=== PATIENT | male | born 1960 | race Caucasian/White ===

== ENCOUNTER 2016-09-01 09:29 | Inpatient (IN) | payer OTHER ==
[~2016-09-01] VITALS: Ht 175.3 cm; Wt 80.0 kg
[2016-09-01] VITALS (48 sets, daily range): BP systolic 118–158; BP diastolic 56–93; PULSE 80–100; RESP 10–23
[~2016-09-01 09:29] MED LIST: CEFAZOLIN 2 GM/50 ML (PMX) 50 ML IVPB SCH; LABETALOL HCL 20MG INJ ONE; LACTATED RINGER'S 1,000 ML IV* ONE; hydrALAzine 20 MG INJ ONE
[2016-09-01] MEDS ORDERED: SOD CHLORIDE 0.9% 500 ML IV STA (10:02)
--- NOTE | 2016-09-01 10:12 | ERA ---
ER Documentation Chief Complaint Date/Time DATE: 09/01/16 TIME: 10:08 Chief Complaint SENT BY PCP FOR NECK SURGERY ;NECK PAIN HPI 55-year-old male history of chronic cervical radiculopathy was sent in by his orthopedic emergency medicine specialist for surgical intervention at noon. The patient is having progressive symptoms consistent with compressive myelopathy. The patient will be taken to the OR around noon. The patient's referring surgeon is called the emergency room requesting for preoperative laboratory testing, EKG and chest x-ray. The patient describes persistent symptoms over 2 weeks. He is now having numbness and tingling and weakness to bilateral upper and lower extremities. ROS All systems reviewed and are negative except as per history of present illness. Medications Home Meds No Active Prescriptions or Reported Meds Allergies Allergies: Coded Allergies: No Known Allergy (Unverified , 09/01/16) FmHx Family History: No diabetes Physical Exam Vitals Vital Signs Date Time Temp Pulse Resp B/P Pulse Ox O2 Delivery O2 Flow Rate FiO2 09/01/16 09:35 98.3 74 19 131/89 99 Physical Exam General: Well developed, well nourished, no acute distress Head: Normocephalic, atraumatic. Eyes: Pupils equally reactive, EOM intact ENT: Moist mucous membranes Neck: Supple, no lymphadenopathy Respiratory: Lungs clear bilaterally, no distress Cardiovascular: RRR, no murmurs, rubs, or gallops Abdominal: Soft, non-tender, non-distended, no peritoneal signs : Deferred MSK: No edema, no unilateral swelling, 4-5 strength noted to bilateral upper and lower extremities Neurologic: Alert and oriented, moving all extremities, normal speech, no cerebellar signs slightly unsteady gait Skin: No rash Psych: Normal mood Result Diagram: 09/01/16 1016 09/01/16 1016 Results 24 hrs Laboratory Tests Test 09/01/16 10:16 White Blood Count 7.910^3/ul Red Blood Count 4.8610^6/ul Hemoglobin 14.7g/dl Hematocrit 43.0% Mean Corpuscular Volume 88.5fl Mean Corpuscular Hemoglobin 30.2pg Mean Corpuscular Hemoglobin Concent 34.2g/dl Red Cell Distribution Width 12.0% Platelet Count 10406^3/UL Mean Platelet Volume 11.0fl Neutrophils % 60.6% Lymphocytes % 28.7% Monocytes % 7.4% Eosinophils % 2.0% Basophils % 0.3% Nucleated Red Blood Cells % 0.0/100WBC Neutrophils # 4.810^3/ul Lymphocytes # 2.310^3/ul Monocytes # 0.610^3/ul Eosinophils # 0.210^3/ul Basophils # 0.010^3/ul Nucleated Red Blood Cells # 0.010^3/ul Prothrombin Time 13.1Sec Prothrombin Time Ratio 1.0 INR International Normalized Ratio 0.99 Activated Partial Thromboplast Time 26.0Sec Sodium Level 142mmol/L Potassium Level 4.0mmol/L Chloride Level 103mmol/L Carbon Dioxide Level 27mmol/L Anion Gap 16 Blood Urea Nitrogen 16mg/dl Creatinine 0.83mg/dl Glucose Level 107mg/dl Calcium Level 9.3mg/dl Current Medications Medications (Trade) Dose Ordered Sig/Jose Cruz Route PRN Reason Start Time Stop Time Status Last Admin Dose Admin Sodium Chloride (NS) 500 ml @ 500 mls/hr Q1H STAT IV 09/01/16 10:02 09/01/16 11:01 DC 09/01/16 10:51 Procedures/MDM EKG, MONITORS, & DIAGNOSTIC IMAGING: EKG: I reviewed and interpreted a 12-lead EKG. Rhythm: Normal sinus rhythm Ectopy: None Intervals: No abnormalities ST segments: No elevations or depressions T waves: No contiguous inversions Chest x-ray: I reviewed and interpreted a 1 view of the chest Mediastinum: No enlargement Cardiac silhouette: No cardiomegaly Airspace: Clear lung gomes bilaterally without evidence of pneumothorax Bones: No evidence of fracture LAB INTERPRETATION: No leukocytosis MEDICAL DECISION MAKING: The patient is being admitted through the emergency room for compressive cervical myelopathy. The patient's referring surgeon is Dr. Vicente. The patient has no acute pain at this time. Preoperative laboratory testing and diagnostic imaging will be initiated. ER COURSE: Preoperative laboratory analysis and imaging was initiated. The patient is awaiting to be called to preop I kept the patient and/or family informed of laboratory and diagnostic imaging results throughout the emergency room course. DISPOSITION PLAN: Taken to preop for surgical decompression CONSULTATION: Accepting care team and consultations: I discussed the current laboratory data, diagnostic imaging and emergency care provided. Admitting team: Dr. Vicente Admitting team indication: Insurance directed Departure Diagnosis: Primary Impression: Cervical radiculopathy Additional Impression: Myelopathy Condition: Stable ANA KULKARNI MD Sep 01, 2016 10:12
--- NOTE | 2016-09-01 10:33 | RADRPT ---
PROCEDURE: XR Chest. CLINICAL INDICATION: Neck pain, preoperative TECHNIQUE: Single frontal view of the chest was obtained COMPARISON: None FINDINGS: The heart and mediastinum are within normal limits. The lungs are clear. There is no pleural effusion or pneumothorax. RPTAT: AA IMPRESSION: No acute disease. .Delroy Grissom MD, MD Date Time Electronically viewed and signed by .Delroy Grissom MD, on 09/01/2016 10:33 .S/
[2016-09-01 10:37] LABS: ADD SCAN DIFF NO
[2016-09-01 10:42] LABS: BASOPHILS % 0.3 % (0.0-2.0); EOSINOPHILS # 0.2 10^3/ul (0.0-0.5); HEMOGLOBIN 14.7 g/dl (14.0-18.0); LYMPHOCYTES # 2.3 10^3/ul (0.8-2.9); LYMPHOCYTES % 28.7 % (15.0-51.0); MEAN CORPUSCULAR HEMOGLOBIN 30.2 pg (29.0-33.0); MEAN CORPUSCULAR HGB CONC 34.2 g/dl (32.0-37.0); MEAN CORPUSCULAR VOLUME 88.5 fl (82.0-101.0); MONOCYTE # 0.6 10^3/ul (0.3-0.9); MONOCYTES % 7.4 % (0.0-11.0); NEUTROPHIL # 4.8 10^3/ul (1.6-7.5); NEUTROPHILS % 60.6 % (39.0-77.0); PLATELET COUNT 212 10^3/UL (140-415); RED BLOOD COUNT 4.86 10^6/ul (4.70-6.10); WHITE BLOOD COUNT 7.9 10^3/ul (4.8-10.8)
[2016-09-01 10:50] LABS: INR 0.99; PROTIME 13.1 Sec (12.2-14.2)
[2016-09-01 10:52] LABS: CREATININE 0.83 mg/dl (0.61-1.24)
[2016-09-01 10:53] LABS: CALCIUM 9.3 mg/dl (8.4-10.2)
--- NOTE | 2016-09-01 11:54 | HPN ---
Date/Time of Note Date/Time of Note DATE: 09/01/16 TIME: 11:54 Interval H&P Admission Note Pt. seen H&P reviewed: No system changes CARTER TEJADA PA-C Sep 01, 2016 11:54
[2016-09-01] MEDS ORDERED: ONDANSETRON 4 MG INJ IV PRN ×2 (12:00→18:00)
[2016-09-01] MEDS ORDERED: CYCLOBENZAPRINE 10 MG TAB PO PRN (12:00)
[2016-09-01] MEDS ORDERED: ACETAMINOPHEN 325 MG TAB PO PRN (12:00)
[2016-09-01] MEDS ORDERED: HYDROmorphONE 1 MG/ML SYG IV PRN (12:00)
[2016-09-01] MEDS ORDERED: CEPASTAT LOZENGE MT PRN (12:00)
[2016-09-01] MEDS ORDERED: AL HYDROX/MG HYDROX/SIMETH 30 ML CUP PO PRN (12:00)
[2016-09-01] MEDS ORDERED: ZOLPIDEM 5 MG TAB PO PRN (12:00)
[2016-09-01] MEDS ORDERED: DIPHENHYDRAMINE 50 MG INJ IV PRN ×2 (12:00→18:00)
[2016-09-01] MEDS ORDERED: BISACODYL 10 MG SUPP PR PRN (12:00)
[2016-09-01] MEDS ORDERED: NALOXONE (0.4 MG/ML) INJ IV PRN (12:00)
[2016-09-01] MEDS ORDERED: GELATIN SIZE 100 SPONGE ONE ×2 (12:48→15:53)
[2016-09-01] MEDS ORDERED: BUPIVACAINE 0.25%/EPI (SDV) 30 ML INJ ONE (12:48)
[2016-09-01] MEDS ORDERED: THROMBIN 5000 UNIT VIAL ONE ×3 (12:48→15:53)
[2016-09-01] MEDS ORDERED: POLYMYXIN/BACITRACIN 1L IRRIG ONE (12:48)
[2016-09-01] MEDS ORDERED: SURGIFOAM POWDER 1 GM KIT ONE (12:48)
[2016-09-01] MEDS ORDERED: LIDOCAINE 2% (SDV) 5 ML INJ ONE (13:30)
[2016-09-01] MEDS ORDERED: NEOSTIGMINE 3 MG/3 ML SYRINGE ONE (13:30)
[2016-09-01] MEDS ORDERED: GLYCOPYRROLATE 1 MG INJ ONE (13:30)
[2016-09-01] MEDS ORDERED: ROCURONIUM 50 MG INJ ONE (13:30)
[2016-09-01] MEDS ORDERED: PROPOFOL 20 ML ONE (13:30)
[2016-09-01] MEDS ORDERED: ONDANSETRON 4 MG INJ ONE (13:30)
[2016-09-01] MEDS ORDERED: FENTAnyl 50 MCG/ML VIAL ONE ×2 (13:30→17:44)
[2016-09-01] MEDS ORDERED: DEXAMETHASONE 4 MG/ML 1 ML INJ ONE ×2 (13:30→15:56)
[2016-09-01] MEDS ORDERED: MIDAZOLAM 1 MG/ML 2 ML INJ ONE ×2 (13:30→17:34)
[2016-09-01] MEDS ORDERED: FUROSEMIDE 20 MG INJ ONE (15:01)
[2016-09-01] MEDS ORDERED: HYDROmorphONE (0.2 MG/ML) 10ML SYG IV ONE (17:21)
[2016-09-01] MEDS: HYDROmorphONE 0.2 MG/ML PCA IV SCH (17:30)
[2016-09-01] MEDS ORDERED: MIDAZOLAM 1 MG/ML 2 ML INJ IV PRN (18:00)
[2016-09-01] MEDS ORDERED: MEPERIDINE 25 MG INJ IV PRN (18:00)
[2016-09-01] MEDS ORDERED: FENTAnyl 50 MCG/ML VIAL IV PRN ×2 (18:00)
[2016-09-01] MEDS ORDERED: ALBUTEROL 0.083% (NEB) 2.5 MG/3 ML AMP HHN ONE (18:00)
[2016-09-01] MEDS ORDERED: HYDROmorphONE (0.2 MG/ML) 10ML SYG IV PRN ×3 (18:00)
[2016-09-01] MEDS: CEFAZOLIN 1 GM/50 ML (PMX) 50 ML IVPB SCH ×2 (18:07→21:34)
[2016-09-01] MEDS: DEXAMETHASONE 4 MG/ML 1 ML INJ IV SCH (18:07)
--- NOTE | 2016-09-01 18:12 | RADRPT ---
PROCEDURE: Intraoperative radiograph of the occipitocervical junction. CLINICAL INDICATION: Surgical planning. TECHNIQUE: A cross-table lateral view of the cervical spine is performed. COMPARISON: No. FINDINGS: The cervical vertebra are anatomically aligned. There is a hemostat projecting at the base of the o ccipital bone. Monitoring electrodes are noted across the shoulders. Endotracheal tube and NG tube are noted in place. Fluoro time: 2.6 seconds mGy: 0.013 IMPRESSION: Intraoperative radiograph as described of the cervical spine. Physician Eugenio Date Time Electronically viewed and signed by Physician Eugenio on 09/01/2016 18:11 /
--- NOTE | 2016-09-01 20:32 | CONS ---
DATE OF ADMISSION: 09/01/2016 DATE OF CONSULTATION: Thank you, Dr. Vicente, for asking me to participate in medical management of this patient. REASON FOR CONSULTATION: High blood pressure. HISTORY OF PRESENT ILLNESS: This 55-year-old man is now postop a cervical spine surgery by Dr. Tye otero. The patient was admitted today through the emergency room because of cervical radiculopathy. The patient has been having increasing symptoms consistent with compressive myelopathy. The patie nt was taken to the operating room today by Dr. Vicente. The patient has had a cervical spine com pression. His symptoms were increasing. He was having neck pain, shoulder pain with numbness in th e elbows all the way to the fingertips. He has also had gait instability. The patient underwent linda rgery today, which included C3-C7 posterior cervical spine decompression. This was a 3-level decomp ression for spinal stenosis and cervical myelopathy. The patient is now in the recovery room. He i s awake, but is having pain and is being medicated. PAST MEDICAL HISTORY: The patient denies any history of prior medical disease. He denies prior hyp ertension, heart disease, diabetes mellitus, bleeding disorder. ALLERGIES: THE PATIENT DENIES ANY DRUG ALLERGIES. PAST SURGICAL HISTORY: He did undergo a right biceps surgery 10 years ago. MEDICATIONS: He does not take any chronic medication. He is not on any herbal supplements. FAMILY HISTORY: Unremarkable. SOCIAL HISTORY: He has never smoked. He drinks alcohol socially. PHYSICAL EXAMINATION: GENERAL: At this time reveals a well-developed man who is in some painful distress. He denies any chest pain or shortness of breath. He is having pain in his cervical spine area. VITAL SIGNS: Blood pressure 149/86, pulse of 83, O2 saturation 98% on room air. HEENT: Head normocephalic. EYES: Extraocular muscles intact. NOSE AND MOUTH: Normal. NECK: Supple. No neck vein distention. LUNGS: Clear to auscultation. HEART: Regular rhythm. No murmurs, gallops, or rubs. ABDOMEN: Soft, nontender. EXTREMITIES: No peripheral edema. IMPRESSION: This patient is now postoperative cervical spine surgery, multilevel. He is awake. He denies any chest pain or shortness of breath. His blood pressure is elevated. I suspect this is d ue to pain that he is having postoperatively. The patient is being medicated with pain medication a nd I think this will control his blood pressure. PLAN: 1. The patient will be transferred to the ICU for careful neurologic monitoring. 2. Postop multilevel cervical spine surgery protocol. 3. Labs in the morning. 4. I will follow the patient along with you. Dictated By: ANA REDDY MD ND/NTS Conf#: [id number] DID#: [id number] CC: PERLA VICENTE MD;*EndCC*
--- NOTE | 2016-09-01 21:07 | OPR ---
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 PROCEDURES: 1. Central decompressive laminectomy at C3-4, C4-5, C5-6, C6-7 with partial medial facetectomy. 2. Noninstrumented fusion at C3-4, C4-5, C5-6 and C6-7. 3. Use of autograft. 4. Use of C-arm fluoroscopy with interpretation without radiologist present. 5. Intraoperative neuromonitoring (3 hours). PRIMARY SURGEON: Ayden Rachel MD. CO-SURGEONS: Gerry Priest MD. SECOND BUCKLE ATTACHER: SERAFIN Pino. IMPLANTS: None. NEED FOR CO-SURGEON: A co-surgeon was required in order to perform one side of decompression while I performed the other to facilitate the speed of the surgery given the significant cervical myelopat hy. FINDINGS: Neuromonitoring at the start of the case revealed ulnar amplitude down 50%. This was the same at the end of the case. Posterior tibial amplitudes were down at the beginning of the case. The same at the end of the case. C5 and C7 amplitudes were down low at the start of the case. Stay ed low at the end of the case. C6 amplitudes were down 80% at the start of the case; stayed low at the end of the case. The patient had significant spinal cord stenosis with hyperemia at the end of the case and swelling. ESTIMATED BLOOD LOSS: 250 mL. DRAINS: One. SPECIMENS: None. COMPLICATIONS OF PROCEDURES: None. ANESTHESIOLOGIST: Dr. Stanley. TYPE OF ANESTHESIA: General. INDICATIONS FOR PROCEDURE: This is a 55-year-old gentleman who presented to the office with cervica l myelopathy, which apparently was progressive. He had an MRI which showed significant anterior and posterior spinal cord compression. There is no kyphosis at this level, and the patient was neutral , and, therefore, it was felt that it would be safer to proceed with the posterior decompressive jamison inectomy and, if indicated, anterior procedure will be done as a stage II. Preoperatively, we discu ssed the risks, benefits, and alternatives. He understood and wished to proceed. DESCRIPTION OF PROCEDURE IN DETAIL: The patient was identified in the preoperative holding area, [facility], taken to the operating room, where he was successfully placed under general an esthesia. Neuromonitoring leads were placed, sequential compressive devices were applied. Gutierres ca theter was introduced. Arterial line was placed. The patient was placed in the operating table in prone position over bolsters. All bony prominences were padded. Arms were tucked at the side. Janene romonitoring was utilized during the procedure for 3 hours to include SSEP, MEP, and EMG. This was performed by [employer]. Start time was 2:00 p.m., closure time was 5:00 p.m. The patient's hair was shaved and neck was prepped, draped in usual sterile fashion. Marcaine and epinephrine was utilized over the skin. The skin was then incised down to the dorsal fascia staying in midline. I then subperiosteally dissected the C2, C3, C4, C5, C6, and C7 lamina bilaterally. Dr. Priest did 1 side while I did the other side. Once this was done, a high speed bur was used to remove the spin ous processes and thin down the lamina while using a Lukens trap to collect the bone. Once this was done, a central decompressive laminectomy was performed at the C3-4, C4-5, C5-6 and C6-7 levels. A lateral recess was altered decompressed. At this point, we felt that adequate decompression was pe rformed. The steroids were given to the patient. I then took final lateral image to confirm the co rrect levels were operated on. The wound was irrigated. Hemostasis was achieved with Gelfoam, thro mbin, and Surgifoam. The lateral masses were then burred down, and I took local autograft and place d this over the lateral masses bilaterally for posterolateral noninstrumented fusion at C3-4, C4-5, C5-6 and C6-7. Deep subfascial drain was placed and the deep fascia was closed with #1 Vicryl stitc h. I then closed subcutaneous tissue with 2-0 Vicryl stitch. A 4-0 Monocryl closure was then perfo rmed. A drain stitch was placed. Dermabond and sterile dressings were then applied. The patient w as then awakened from anesthesia and taken to recovery room in stable condition. Lap, sponge, and i nstrument counts were correct x2. There were no apparent complications during the procedure. The patient will be admitted to the ICU for close neurovascular checks. On postoperative day #1 MRI will be obtained. If indicated, anterior decompression will be performed next. Lap, sponge, counts correct x2. Dictated By: AYDEN RACHEL MD BB/NTS Conf#: [id number] DID#: [id number] CC: GERRY PRIEST MD;*EndCC*
[2016-09-01] MEDS: D5W-0.45 NACL + KCL 20 MEQ 1,000 ML IV SCH (21:32)
[2016-09-01] MEDS: DOCUSATE SODIUM 100 MG CAP PO SCH (21:34)
[2016-09-02] VITALS (47 sets, daily range): BP systolic 115–149; BP diastolic 54–92; PULSE 82–102; RESP 10–28; Ht 175.3 cm; Wt 80.0 kg
[2016-09-02] MEDS: DEXAMETHASONE 4 MG/ML 1 ML INJ IV SCH ×5 (00:51→23:33)
[2016-09-02] MEDS: CEFAZOLIN 1 GM/50 ML (PMX) 50 ML IVPB SCH (05:46)
[2016-09-02 06:25] LABS: ADD SCAN DIFF NO
[2016-09-02 06:32] LABS: BASOPHILS % 0.1 % (0.0-2.0); HEMATOCRIT 39.7 % (42.0-52.0); HEMOGLOBIN 13.7 g/dl (14.0-18.0); LYMPHOCYTES # 1.2 10^3/ul (0.8-2.9); LYMPHOCYTES % 6.3 % (15.0-51.0); MEAN CORPUSCULAR HEMOGLOBIN 30.4 pg (29.0-33.0); MEAN CORPUSCULAR HGB CONC 34.5 g/dl (32.0-37.0); MEAN PLATELET VOLUME 11.2 fl (7.4-10.4); MONOCYTE # 0.5 10^3/ul (0.3-0.9); MONOCYTES % 2.7 % (0.0-11.0); NEUTROPHILS % 90.4 % (39.0-77.0); PLATELET COUNT 241 10^3/UL (140-415); RED BLOOD COUNT 4.51 10^6/ul (4.70-6.10); RED CELL DISTRIBUTION WIDTH 11.9 % (11.5-14.5); WHITE BLOOD COUNT 18.8 10^3/ul (4.8-10.8)
--- NOTE | 2016-09-02 07:00 | PN ---
Date/Time of Note Date/Time of Note DATE: 09/02/16 TIME: 06:58 Assessment/Plan Lines/Catheters IV Catheter Type (from Nrs): A Line Gutierres in Place (from Nrs): Yes Assessment/Plan Assessment/Plan s/p cervical decompression the patient's myelopathic symptoms appear improved. Will obtain MRI this am. Subjective 24 Hr Interval Summary feel more sensation in ext Exam/Review of Systems Vital Signs Vitals Vital Signs Date Time Temp Pulse Resp B/P Pulse Ox O2 Delivery O2 Flow Rate FiO2 09/02/16 05:30 88 11 124/54 99 Nasal Cannula 2.0 09/02/16 02:00 99.0 Intake and Output 09/01/16 09/01/16 09/02/16 15:00 23:00 07:00 Intake Total 2500 ml 350 ml Output Total 2530 ml 950 ml Balance -30 ml -600 ml Exam Free Text/Dictation strength grossly intact - improved from pre-op. no focal worsening Results Result Diagram: 09/02/16 0600 09/01/16 1016 PERLA RACHEL MD Sep 02, 2016 07:00
--- NOTE | 2016-09-02 07:00 | HPN ---
Date/Time of Note Date/Time of Note DATE: 09/02/16 TIME: 07:00 Interval H&P Admission Note Pt. seen H&P reviewed: No system changes PERLA RACHEL MD Sep 02, 2016 07:00
[2016-09-02 07:01] LABS: MAGNESIUM 1.4 mg/dl (1.7-2.5)
[2016-09-02 07:08] LABS: CALCIUM 8.9 mg/dl (8.4-10.2); CREATININE 0.68 mg/dl (0.61-1.24); POTASSIUM 3.8 mmol/L (3.5-5.1)
[2016-09-02] MEDS: D5W-0.45 NACL + KCL 20 MEQ 1,000 ML IV SCH ×3 (07:28→18:30)
[2016-09-02] MEDS: HYDROmorphONE 0.2 MG/ML PCA IV SCH ×2 (07:30→18:43)
--- NOTE | 2016-09-02 08:12 | CONS ---
Date/Time of Note Date/Time of Note DATE: 09/02/16 TIME: 08:11 Assessment/Plan Assessment/Plan Additional Assessment/Plan 1. Stablel post op cx spine surgery, 2nd procedure is planned ? 2. Low Mag, will replete Consultation Date/Type/Reason Admit Date/Time Sep 01, 2016 at 17:14 Initial Consult Date Detailed Summary Respiratory: No cough, No shortness of breath Cardiovascular: No chest pain Gastrointestinal: pain (mild lower abd discomfort), No nausea, No vomiting Neurologic: other (mild neck pain) Exam/Review of Systems Vital Signs Vitals Vital Signs Date Time Temp Pulse Resp B/P Pulse Ox O2 Delivery O2 Flow Rate FiO2 09/02/16 07:30 98.4 92 17 134/62 98 Nasal Cannula 2.0 Intake and Output 09/01/16 09/01/16 09/02/16 15:00 23:00 07:00 Intake Total 2500 ml 350 ml Output Total 2530 ml 950 ml Balance -30 ml -600 ml Exam Neck: No jvd Respiratory: clear to auscultation Cardiovascular: regular rate and rhythm Gastrointestinal: soft Extremities: No edema (and no calf tend) Results Result Diagram: 09/02/16 0600 09/02/16 0600 Results 24 hrs Laboratory Tests Test 09/01/16 10:16 09/02/16 06:00 White Blood Count 7.9 18.8 #H Red Blood Count 4.86 4.51 L Hemoglobin 14.7 13.7 L Hematocrit 43.0 39.7 L Mean Corpuscular Volume 88.5 88.0 Mean Corpuscular Hemoglobin 30.2 30.4 Mean Corpuscular Hemoglobin Concent 34.2 34.5 Red Cell Distribution Width 12.0 11.9 Platelet Count 212 241 Mean Platelet Volume 11.0 H 11.2 H Neutrophils % 60.6 90.4 H Lymphocytes % 28.7 6.3 L Monocytes % 7.4 2.7 Eosinophils % 2.0 0.0 Basophils % 0.3 0.1 Nucleated Red Blood Cells % 0.0 0.0 Neutrophils # 4.8 17.0 H Lymphocytes # 2.3 1.2 Monocytes # 0.6 0.5 Eosinophils # 0.2 0.0 Basophils # 0.0 0.0 Nucleated Red Blood Cells # 0.0 0.0 Prothrombin Time 13.1 Prothrombin Time Ratio 1.0 INR International Normalized Ratio 0.99 Activated Partial Thromboplast Time 26.0 Sodium Level 142 137 Potassium Level 4.0 3.8 Chloride Level 103 100 Carbon Dioxide Level 27 24 Anion Gap 16 17 H Blood Urea Nitrogen 16 12 Creatinine 0.83 0.68 Glucose Level 107 157 Calcium Level 9.3 8.9 Magnesium Level 1.4 L Medications Medications Current Medications Potassium Chloride/Dextrose/ Sod Cl (D5-1/2ns + KCl 20 Meq) 1,000 ml @ 100 mls/ hr Q10H IV Last administered on 09/02/16 07:28; Admin Dose 100 MLS/HR; Start 09/01/16 at 11:50 Oxycodone/ Acetaminophen (Endocet (10/ 325)) 1 tab Q4H PRN PO PAIN LEVEL 1-5; Start 09/03/16 at 10:00 Oxycodone/ Acetaminophen (Endocet (10/ 325)) 2 tab Q4H PRN PO PAIN LEVEL 6-10; Start 09/03/16 at 10:00 Hydromorphone HCl (Dilaudid) 0.2 mg Q1H PRN IV BREAKTHROUGH PAIN; Start at 12:00 Zolpidem Tartrate (Ambien) 10 mg HS PRN PO INSOMNIA; Start 09/01/16 at 12:00 Ondansetron HCl (Zofran Inj) 4 mg Q6H PRN IV NAUSEA AND/OR VOMITING; Start at 12:00 Bisacodyl (Dulcolax Supp) [address] CONSTIPATION; Start 09/01/16 at 12 :00 Docusate Sodium (Colace) 100 mg BID PO Last administered on 09/01/16t 21:34; Admin Dose 100 MG; Start 09/01/16 at 21:00 Al Hydrox/Mg Hydrox/Simethicone (Mag-Al Plus) 15 ml Q6H PRN PO CONSTIPATION/ DYSPEPSIA; Start 09/01/16 at 12:00 Acetaminophen (Tylenol Tab) 650 mg Q4H PRN PO MOSCOSO OR TEMP GREATER THAN 101.3F; Start 09/01/16 at 12:00 Cyclobenzaprine HCl (Flexeril) 10 mg TID PRN PO MUSCLE SPASMS; Start 09/01/16 at 12:00 Phenol (Cepastat Lozenge) 1 lozenge PRN PRN MT SORE THROAT; Start 09/01/16 at 12:00 Diphenhydramine HCl (Benadryl) 25 mg Q6H PRN IV ITCHING; Start 09/01/16 at 12: 00 Naloxone HCl (Narcan) 0.2 mg Q2M PRN IV RR 8 BREATHS/MIN OR LESS; Start at 12:00 Hydromorphone HCl (Dilaudid CLAIM PROCESSOR) CLAIM PROCESSOR to be started in PACU Q4PCA IV Last administered on 09/02/16 07:30; Admin Dose 30 MG; Start 09/01/16 at 12:00; Status Future Hold Oxycodone/ Acetaminophen (Endocet ()) 2 tab ONCE@0930 PO ; Start at 09:30; Stop 09/03/16 at 12:00 Dexamethasone (Decadron) 4 mg Q6 IV Last administered on 09/02/16 06:21; Admin Dose 4 MG; Start 09/01/16 at 18:00; Stop 09/02/16 at 17:59 Dexamethasone (Decadron) 2 mg Q6 IV ; Start 09/02/16 at 18:00; Stop 09/03/16 at 18:00 YUAN RAVI MD Sep 02, 2016 08:12
[2016-09-02] MEDS ORDERED: MAGNESIUM SULFATE 3 GM in SOD CHLORIDE 0.9% 100 ML IVPB ONE (09:30)
[2016-09-02] MEDS: DOCUSATE SODIUM 100 MG CAP PO SCH ×2 (09:44→20:56)
--- NOTE | 2016-09-02 12:14 | RADRPT ---
PROCEDURE: MRI Cervical spine without and with contrast CLINICAL INDICATION: Status post cervical decompression, weakness TECHNIQUE: An MRI of the cervical spine was performed utilizing the following sequences: Sagittal and axial T1 weighted, sagittal and axial T2 weighted, axial GRE, and sagittal T2 weighted with fat saturation. Additional post contrast sequences were acquired. 10 cc Magnevist was administered intr avenously without reported complication. COMPARISON: none FINDINGS: Status post posterior decompression C3-C7 with dorsal surgical drain in place. Straightening of the cervical lordosis. No acute vertebral compression fracture. No diffuse marrow replacing process. Hyperintense T2 si gnal within the cord is visualized from C3-4 to the level of C7 (se 3 image 7; se 4 image 7) . C2-3: The disk is preserved height. No significant disk protrusion, spinal canal or foraminal sten osis. C3-4: Surgical changes noted. 1 mm disk osteophyte complex and uncovertebral osteophytes are seen . There is mild bilateral foraminal narrowing. C4-5: Surgical changes noted. 4 mm central disk protrusion is identified with additional 5 x 18 mm ovoid T2 hyperintense structure within the ventral epidural space extending above and below the disk level (series 4 image 7). This epidural structure matches the signal of the disk on the T1 sequenc e. There is resulting effacement of the thecal sac with compression of the cord. Again, abnormal co rd signal is seen at this level. There is moderate-severe narrowing of the thecal sac at this level. Uncovertebral osteophytes and facet arthropathy cause mild bilateral foraminal narrowing. C5-6: Surgical changes noted. A left central 4 mm disk protrusion compresses the left ventral cord surface and results in moderate to severe narrowing of the thecal sac. No significant foraminal vi rowing. C6-7: Moderate to severe disk height loss. Uncovertebral osteophytes cause severe bilateral foramin al stenosis. A 5 mm posterior disk osteophyte complex effaces the ventral thecal sac and indents th e ventral cord surface. There appears to be mild to moderate narrowing of the thecal sac. C7-T1: The disk is preserved height. No significant disk protrusion, spinal canal or foraminal diamond nosis. IMPRESSION: Status post posterior decompression C3-C7 with dorsal surgical drain in place. Abnormal cord edema is visualized from C3-4 to C7. At C4-5, a 4 mm central disk protrusion is identified with a superimposed 5 x 18 mm ventral epidural space ovoid structure. The signal characteristics match disk signal suggesting extruded disk materi al. A developing epidural hematoma is felt less likely but difficult to entirely exclude in the imme diate postoperative setting. There is moderate-severe narrowing of the thecal sac at this level. C orrelation to prior imaging and attention on future follow up is recommended. At C5-6, a left central 4 mm disk protrusion compresses the left ventral cord surface and results in moderate to severe narrowing of the thecal sac. Moderate to severe discogenic disease C6-7 with severe bilateral foraminal stenosis and mild to mode rate narrowing of the thecal sac. A call report was made to the only phone number provided with information given to Anjum, Title Coordinator for the spine/ortho service at 09/02/2016 11:58:45 AM. Request to forward information t o the covering physician to correlate with neuro exam findings. RPTAT: AA .Willy Guzman MD, MD Date Time Electronically viewed and signed by .Willy Guzman MD, on 09/02/2016 12:13 .T/
[2016-09-02] MEDS ORDERED: DEXAMETHASONE 4 MG/ML 1 ML INJ IV SCH (18:00)
[2016-09-03 00:05] VITALS: BP 126/76; RESP 20
[2016-09-03] MEDS: HYDROmorphONE 0.2 MG/ML PCA IV SCH ×2 (02:57→18:56)
[2016-09-03] MEDS: D5W-0.45 NACL + KCL 20 MEQ 1,000 ML IV SCH ×3 (03:50→17:55)
--- NOTE | 2016-09-03 04:03 | OPR ---
DATE OF OPERATION: 09/01/2016 PREOPERATIVE DIAGNOSES: 1. Cervical myelopathy. 2. Cervical radiculopathy. 3. Cervical stenosis with quadriparesis. POSTOPERATIVE DIAGNOSES: 1. Cervical myelopathy. 2. Cervical radiculopathy. 3. Cervical stenosis with quadriparesis. PROCEDURES: 1. C3 bilateral laminectomy, medial facetectomy and foraminotomy, CPT 37441. 2. C4, C5, C6, C7 additional 4-level bilateral laminectomy, medial [place] [address] x4. 3. Posterolateral fusion, C3-C4, CPT 22003. 4. Posterolateral fusion, C4-C5, C5-C6, C6-C7, additional 3 levels, CPT 69668 x3. SURGEON AND CO-SURGEON: Dr. Gerry Mosqueda and Dr. Cinthia Vicente will be dictating the operative note also. INDICATION FOR THE OPERATION: Please refer to my consultation. This patient is 55, has severe cerv ical stenosis, cervical myelopathy. We will proceed with cervical decompressive laminectomy. There are disc herniations anteriorly in cervical spine that appear to be acute. This is the first part of the operation, in order to create more room in the spinal canal. The spinal cord is quite swolle n. The patient was seen in my office for second opinion for surgical evaluation and I recommended t he posterior cervical laminectomy to decompress the cervical spine first and then proceed with an an terior approach, with fusion and instrumentation. Patient agreed to proceed with operation an d signed the consent. DESCRIPTION OF PROCEDURE: The patient was placed in supine position. General endotracheal anesthes ia was obtained. The patient was turned prone on vertical boasters. Back of neck was clipped, prep ped and draped in normal sterile fashion. Incision was made by Dr. Vicente. Incision was carried out to the C3, C4, C5, C6 and C7 lamina. The laminectomy was started with high-speed drill. We dr illed off the lamina and was completely drilled off. Following that, the lamina from C7 all t he way to C3 was removed with #2, #3 and #4 Kerrison punch. There was severe stenosis. There was s evere bulging. The bone that was harvested in a Lukens trap with the drill was processed and was pl aced as an onlay graft onto the lateral masses from C3 to C7, after the lateral masses from C3 to C7 were brought together. The wound was closed in standard 3-layer fashion. The patient tolerated th e procedure well, was taken to postanesthesia recovery and then to the intensive care unit for obser vation. It should be noted that there was a drain that was placed in the epidural space and exited from the skin through a separate stab incision, was secured to the skin with 2-0 nylon suture. This was a medium size Hemovac drain. Dictated By: GERRY MOSQUEDA MD SY/NTS Conf#: [id number] DID#: [id number] CC: PERLA VICENTE MD;*[facility]*
[2016-09-03 05:08] LABS: ADD SCAN DIFF NO
[2016-09-03] MEDS: DEXAMETHASONE 4 MG/ML 1 ML INJ IV SCH ×4 (05:14→22:56)
[2016-09-03 05:19] LABS: BASOPHILS % 0.1 % (0.0-2.0); HEMATOCRIT 37.7 % (42.0-52.0); LYMPHOCYTES # 1.3 10^3/ul (0.8-2.9); MEAN CORPUSCULAR HGB CONC 34.5 g/dl (32.0-37.0); MEAN CORPUSCULAR VOLUME 89.8 fl (82.0-101.0); MONOCYTE # 1.2 10^3/ul (0.3-0.9); MONOCYTES % 5.3 % (0.0-11.0); NEUTROPHIL # 19.6 10^3/ul (1.6-7.5); PLATELET COUNT 260 10^3/UL (140-415); RED CELL DISTRIBUTION WIDTH 11.9 % (11.5-14.5); WHITE BLOOD COUNT 22.2 10^3/ul (4.8-10.8)
[2016-09-03 05:24] LABS: POTASSIUM 4.4 mmol/L (3.5-5.1)
[2016-09-03 05:27] LABS: CREATININE 0.68 mg/dl (0.61-1.24)
[2016-09-03 05:28] LABS: MAGNESIUM 2.2 mg/dl (1.7-2.5)
[2016-09-03 07:53] VITALS: BP 129/72; RESP 19
--- NOTE | 2016-09-03 08:47 | CONS ---
Date/Time of Note Date/Time of Note DATE: 09/03/16 TIME: 08:44 Assessment/Plan Assessment/Plan Additional Assessment/Plan 1. Stable post cx laminectomy with second procedure planned on thursday 2. WBC is inc, steroids started yesterday, will check u/a and cult Consultation Date/Type/Reason Admit Date/Time Sep 01, 2016 at 17:14 Detailed Summary Respiratory: cough, No shortness of breath Cardiovascular: No chest pain, No orthopenea Gastrointestinal: no complaints Genitourinary: other (valdez in place) Musculoskeletal: neck pain (moderate without shoulder pain, hands ache some but no cramping or burning) Exam/Review of Systems Vital Signs Vitals Vital Signs Date Time Temp Pulse Resp B/P Pulse Ox O2 Delivery O2 Flow Rate FiO2 09/03/16 07:53 98.0 71 19 129/72 98 09/02/16 16:00 Room Air 09/02/16 10:06 2.0 Intake and Output 09/02/16 09/02/16 09/03/16 15:00 23:00 07:00 Intake Total 300 ml 1380 ml 1550 ml Output Total 1110 ml 2420 ml 1560 ml Balance -810 ml -1040 ml -10 ml Exam Neck: No jvd Respiratory: clear to auscultation, crackles/rales Cardiovascular: regular rate and rhythm Gastrointestinal: soft Extremities: No edema (and no calf tend) Results Result Diagram: 09/03/16 0425 09/03/16 0425 Results 24 hrs Laboratory Tests Test 09/03/16 04:25 White Blood Count 22.2 H Red Blood Count 4.20 L Hemoglobin 13.0 L Hematocrit 37.7 L Mean Corpuscular Volume 89.8 Mean Corpuscular Hemoglobin 31.0 Mean Corpuscular Hemoglobin Concent 34.5 Red Cell Distribution Width 11.9 Platelet Count 260 Mean Platelet Volume 11.0 H Neutrophils % 88.0 H Lymphocytes % 6.0 L Monocytes % 5.3 Eosinophils % 0.0 Basophils % 0.1 Nucleated Red Blood Cells % 0.0 Neutrophils # 19.6 H Lymphocytes # 1.3 Monocytes # 1.2 H Eosinophils # 0.0 Basophils # 0.0 Nucleated Red Blood Cells # 0.0 Sodium Level 139 Potassium Level 4.4 Chloride Level 100 Carbon Dioxide Level 30 Anion Gap 13 Blood Urea Nitrogen 14 Creatinine 0.68 Glucose Level 161 Calcium Level 9.0 Phosphorus Level 3.3 Magnesium Level 2.2 Medications Medications Current Medications Potassium Chloride/Dextrose/ Sod Cl (D5-1/2ns + KCl 20 Meq) 1,000 ml @ 100 mls/ hr Q10H IV Last administered on 09/03/16 05:14; Admin Dose 100 MLS/HR; Start 09/01/16 at 11:50 Oxycodone/ Acetaminophen (Endocet (10 325)) 1 tab Q4H PRN PO PAIN LEVEL 1-5; Start 09/03/16 at 10:00 Oxycodone/ Acetaminophen (Endocet (10/ 325)) 2 tab Q4H PRN PO PAIN LEVEL 6-10; Start 09/03/16 at 10:00 Hydromorphone HCl (Dilaudid) 0.2 mg Q1H PRN IV BREAKTHROUGH PAIN; Start at 12:00 Zolpidem Tartrate (Ambien) 10 mg HS PRN PO INSOMNIA; Start 09/01/16 at 12:00 Ondansetron HCl (Zofran Inj) 4 mg Q6H PRN IV NAUSEA AND/OR VOMITING Last administered on 09/02/16 12:35; Admin Dose 4 MG; Start 09/01/16 at 12:00 Bisacodyl (Dulcolax Supp) 10 mg DAILY PRN [place] CONSTIPATION; Start 09/01/16 at 12 :00 Docusate Sodium (Colace) 100 mg BID PO Last administered on 09/02/16 20:56; Admin Dose 100 MG; Start 09/01/16 at 21:00 Al Hydrox/Mg Hydrox/Simethicone (Mag-Al Plus) 15 ml Q6H PRN PO CONSTIPATION/ DYSPEPSIA; Start 09/01/16 at 12:00 Acetaminophen (Tylenol Tab) 650 mg Q4H PRN PO MOSCOSO OR TEMP GREATER THAN 101.3F; Start 09/01/16 at 12:00 Cyclobenzaprine HCl (Flexeril) 10 mg TID PRN PO MUSCLE SPASMS; Start 09/01/16 at 12:00 Phenol (Cepastat Lozenge) 1 lozenge PRN PRN [place] SORE THROAT; Start 09/01/16 at 12:00 Diphenhydramine HCl (Benadryl) 25 mg Q6H PRN IV ITCHING; Start 09/01/16 at 12: 00 Naloxone HCl (Narcan) 0.2 mg Q2M PRN IV RR 8 BREATHS/MIN OR LESS; Start at 12:00 Hydromorphone HCl (Dilaudid CYLINDER INSPECTOR AND TESTER) CYLINDER INSPECTOR AND TESTER to be started in PACU Q4PCA IV Last administered on 09/03/16 02:57; Admin Dose 6 MG; Start 09/01/16 at 12:00; Status Future Hold Oxycodone/ Acetaminophen (Endocet (10/ 325)) 2 tab ONCE@0930 PO ; Start at 09:30; Stop 09/03/16 at 12:00 Dexamethasone (Decadron) 2 mg Q6 IV Last administered on 09/03/16 05:14; Admin Dose 2 MG; Start 09/03/16 at 06:00; Stop 09/05/16 at 18:00 YUAN RAVI MD Sep 03, 2016 08:47
[2016-09-03] MEDS ORDERED: OXYCODONE/ACETAMINOPHEN (10/325) TAB PO SCH (09:30)
[2016-09-03] MEDS: DOCUSATE SODIUM 100 MG CAP PO SCH ×2 (09:49→19:59)
[2016-09-03] MEDS ORDERED: OXYCODONE/ACETAMINOPHEN (10/325) TAB PO PRN ×2 (10:00)
[2016-09-03 11:43] LABS: ADD UMIC YES; URINE BILIRUBIN (Dip) NEGATIVE (NEGATIVE); URINE BLOOD (Dip) 1+ (NEGATIVE); URINE COLOR LT. YELLOW (YELLOW); URINE GLUCOSE (Dip) NEGATIVE (NEGATIVE); URINE KETONES (Dip) NEGATIVE (NEGATIVE); URINE LEUKOCYTE ESTERASE (Dip) NEGATIVE (NEGATIVE); URINE NITRITE (Dip) NEGATIVE (NEGATIVE); URINE TOTAL PROTEIN (Dip) NEGATIVE (NEGATIVE); URINE UROBILINOGEN (Dip) 1.0 E.U./dL (0.1-1.0)
--- NOTE | 2016-09-03 11:53 | PN ---
Date/Time of Note Date/Time of Note DATE: 09/03/16 TIME: 11:51 Assessment/Plan Lines/Catheters IV Catheter Type (from Nrs): Peripheral IV Valdez in Place (from Nrs): Yes Assessment/Plan Assessment/Plan s/p posterior cervical decompression C4-7 myelopathic patient plan ACDF C4-7 on thursday afternoon NPO after MN on consent patient for surgery maintain valdez and VETERINARY LABORATORY TECHNICIAN Subjective 24 Hr Interval Summary patient notes improvement in arm symptoms Exam/Review of Systems Vital Signs Vitals Vital Signs Date Time Temp Pulse Resp B/P Pulse Ox O2 Delivery O2 Flow Rate FiO2 09/03/16 07:53 98.0 71 19 129/72 98 09/02/16 16:00 Room Air 09/02/16 10:06 2.0 Intake and Output 09/02/16 09/02/16 09/03/16 15:00 23:00 07:00 Intake Total 300 ml 1380 ml 1550 ml Output Total 1110 ml 2420 ml 1560 ml Balance -810 ml -1040 ml -10 ml Exam Free Text/Dictation NVID AF, VSS posterior cervical dressing intact Results Result Diagram: 09/03/16 0425 09/03/16 0425 CARTER TEJADA PA-C Sep 03, 2016 11:53
[2016-09-03 12:00] VITALS: BP 126/76; PULSE 85; RESP 17
[2016-09-03 16:00] VITALS: BP 129/68; PULSE 88; RESP 17
[2016-09-03 20:11] VITALS: BP 131/78; RESP 20
[2016-09-04 05:09] LABS: ADD SCAN DIFF NO
[2016-09-04 05:18] LABS: BASOPHILS % 0.1 % (0.0-2.0); HEMATOCRIT 39.1 % (42.0-52.0); HEMOGLOBIN 13.3 g/dl (14.0-18.0); LYMPHOCYTES # 1.9 10^3/ul (0.8-2.9); LYMPHOCYTES % 9.6 % (15.0-51.0); MEAN CORPUSCULAR HEMOGLOBIN 30.4 pg (29.0-33.0); MEAN CORPUSCULAR VOLUME 89.5 fl (82.0-101.0); MONOCYTE # 1.2 10^3/ul (0.3-0.9); MONOCYTES % 6.1 % (0.0-11.0); NEUTROPHIL # 16.5 10^3/ul (1.6-7.5); NEUTROPHILS % 83.2 % (39.0-77.0); PLATELET COUNT 252 10^3/UL (140-415); RED BLOOD COUNT 4.37 10^6/ul (4.70-6.10); RED CELL DISTRIBUTION WIDTH 11.6 % (11.5-14.5); WHITE BLOOD COUNT 19.8 10^3/ul (4.8-10.8)
[2016-09-04] MEDS: DEXAMETHASONE 4 MG/ML 1 ML INJ IV SCH ×3 (05:29→18:47)
[2016-09-04 05:31] LABS: POTASSIUM 4.1 mmol/L (3.5-5.1)
[2016-09-04 05:34] LABS: CREATININE 0.72 mg/dl (0.61-1.24)
[2016-09-04 05:35] LABS: CALCIUM 9.1 mg/dl (8.4-10.2)
--- NOTE | 2016-09-04 07:44 | PN ---
Date/Time of Note Date/Time of Note DATE: 09/04/16 TIME: 07:43 Assessment/Plan Lines/Catheters IV Catheter Type (from Nrs): Peripheral IV Gutierres in Place (from Nrs): Yes Assessment/Plan Assessment/Plan s/p cervical decompression d/c drain. MRI tonight anticipate surgery tomorrow afternoon Subjective 24 Hr Interval Summary upper extremity feeling improved. Exam/Review of Systems Vital Signs Vitals Vital Signs Date Time Temp Pulse Resp B/P Pulse Ox O2 Delivery O2 Flow Rate FiO2 09/04/16 05:40 18 09/03/16 20:11 97.8 69 131/78 98 09/03/16 16:00 Room Air 09/02/16 10:06 2.0 Intake and Output 09/03/16 09/03/16 09/04/16 15:00 23:00 07:00 Intake Total 1470 ml 1360 ml Output Total 2500 ml 3520 ml Balance -1030 ml -2160 ml Exam Free Text/Dictation neuro exam unchanged. Results Result Diagram: 09/04/16 0425 09/04/16 0425 PERLA RACHEL MD Sep 04, 2016 07:44
[2016-09-04 08:07] VITALS: BP 129/86; RESP 18
[2016-09-04] MEDS: DOCUSATE SODIUM 100 MG CAP PO SCH ×2 (08:46→21:08)
[2016-09-04] MEDS: HYDROmorphONE 0.2 MG/ML PCA IV SCH (08:48)
[2016-09-04] MEDS: D5W-0.45 NACL + KCL 20 MEQ 1,000 ML IV SCH ×2 (09:50→21:09)
--- NOTE | 2016-09-04 11:11 | CONS ---
Date/Time of Note Date/Time of Note DATE: 09/04/16 TIME: 11:10 Assessment/Plan Assessment/Plan Additional Assessment/Plan 1. Stable post op cx laminectomy, 2nd procedure planned tomm 2. Labs rev Consultation Date/Type/Reason Admit Date/Time Sep 01, 2016 at 17:14 Detailed Summary Respiratory: No cough, No shortness of breath Cardiovascular: no complaints Gastrointestinal: no complaints Genitourinary: other (valdez in place) Musculoskeletal: neck pain (mild-mod) Exam/Review of Systems Vital Signs Vitals Vital Signs Date Time Temp Pulse Resp B/P Pulse Ox O2 Delivery O2 Flow Rate FiO2 09/04/16 08:07 98.3 64 18 129/86 98 09/03/16 16:00 Room Air 09/02/16 10:06 2.0 Intake and Output 09/03/16 09/03/16 09/04/16 15:00 23:00 07:00 Intake Total 1470 ml 1360 ml Output Total 2500 ml 3520 ml Balance -1030 ml -2160 ml Exam Neck: No jvd Respiratory: clear to auscultation Cardiovascular: regular rate and rhythm Gastrointestinal: soft Extremities: No edema (and no calf tend) Results Result Diagram: 09/04/16 0425 09/04/16 0425 Results 24 hrs Laboratory Tests Test 09/04/16 04:25 White Blood Count 19.8 H Red Blood Count 4.37 L Hemoglobin 13.3 L Hematocrit 39.1 L Mean Corpuscular Volume 89.5 Mean Corpuscular Hemoglobin 30.4 Mean Corpuscular Hemoglobin Concent 34.0 Red Cell Distribution Width 11.6 Platelet Count 252 Mean Platelet Volume 11.0 H Neutrophils % 83.2 H Lymphocytes % 9.6 L Monocytes % 6.1 Eosinophils % 0.0 Basophils % 0.1 Nucleated Red Blood Cells % 0.0 Neutrophils # 16.5 H Lymphocytes # 1.9 Monocytes # 1.2 H Eosinophils # 0.0 Basophils # 0.0 Nucleated Red Blood Cells # 0.0 Sodium Level 138 Potassium Level 4.1 Chloride Level 98 Carbon Dioxide Level 31 Anion Gap 13 Blood Urea Nitrogen 17 Creatinine 0.72 Glucose Level 155 Calcium Level 9.1 Magnesium Level 2.0 Medications Medications Current Medications Potassium Chloride/Dextrose/ Sod Cl (D5-1/2ns + KCl 20 Meq) 1,000 ml @ 100 mls/ hr Q10H IV Last administered on 09/03/16 17:55; Admin Dose 100 MLS/HR; Start 09/01/16 at 11:50 Oxycodone/ Acetaminophen (Endocet ( 325)) 1 tab Q4H PRN PO PAIN LEVEL 1-5; Start 09/03/16 at 10:00; Status Future Hold Oxycodone/ Acetaminophen (Endocet ( 325)) 2 tab Q4H PRN PO PAIN LEVEL 6-10; Start 09/03/16 at 10:00; Status Future Hold Hydromorphone HCl (Dilaudid) 0.2 mg Q1H PRN IV BREAKTHROUGH PAIN; Start at 12:00 Zolpidem Tartrate (Ambien) 10 mg HS PRN PO INSOMNIA; Start 09/01/16 at 12:00 Ondansetron HCl (Zofran Inj) 4 mg Q6H PRN IV NAUSEA AND/OR VOMITING Last administered on 09/02/16 12:35; Admin Dose 4 MG; Start 09/01/16 at 12:00 Bisacodyl (Dulcolax Supp) 10 mg DAILY PRN [place] CONSTIPATION; Start 09/01/16 at 12 :00 Docusate Sodium (Colace) 100 mg BID PO Last administered on 09/04/16 08:46; Admin Dose 100 MG; Start 09/01/16 at 21:00 Al Hydrox/Mg Hydrox/Simethicone (Mag-Al Plus) 15 ml Q6H PRN PO CONSTIPATION/ DYSPEPSIA; Start 09/01/16 at 12:00 Acetaminophen (Tylenol Tab) 650 mg Q4H PRN PO MOSCOSO OR TEMP GREATER THAN 101.3F; Start 09/01/16 at 12:00 Cyclobenzaprine HCl (Flexeril) 10 mg TID PRN PO MUSCLE SPASMS; Start 09/01/16 at 12:00 Phenol (Cepastat Lozenge) 1 lozenge PRN PRN [place] SORE THROAT; Start 09/01/16 at 12:00 Diphenhydramine HCl (Benadryl) 25 mg Q6H PRN IV ITCHING; Start 09/01/16 at 12: 00 Naloxone HCl (Narcan) 0.2 mg Q2M PRN IV RR 8 BREATHS/MIN OR LESS; Start at 12:00 Hydromorphone HCl (Dilaudid METALIZING SUPERVISOR) METALIZING SUPERVISOR to be started in PACU Q4PCA IV Last administered on 09/04/16 08:48; Admin Dose 6 MG; Start 09/01/16 at 12:00; Status Future hold Dexamethasone 2 mg 2 mg Q6 IV Last administered on 09/04/16 05:29; Admin Dose 2 MG; Start 09/03/16 at 06:00; Stop 09/05/16 at 18:00 Cefazolin Sodium/ Dextrose (Ancef 2 Gm/50 ml (Pmx)) 50 ml @ 100 mls/hr ONCE ONCE IVPB ; Start 09/05/16 at 06:00; Stop 09/05/16 at 06:29 YUAN RAVI MD Sep 04, 2016 11:11
[2016-09-04 20:16] VITALS: BP 148/87; RESP 20
[2016-09-05] VITALS (17 sets, daily range): BP systolic 125–156; BP diastolic 64–97; PULSE 68–102; RESP 9–25
[2016-09-05] MEDS: DEXAMETHASONE 4 MG/ML 1 ML INJ IV SCH ×4 (00:40→18:00)
[2016-09-05] MEDS: HYDROmorphONE 0.2 MG/ML PCA IV SCH ×3 (05:32→22:35)
[2016-09-05] MEDS: D5W-0.45 NACL + KCL 20 MEQ 1,000 ML IV SCH ×3 (05:50→22:11)
[2016-09-05] MEDS ORDERED: CEFAZOLIN 2 GM/50 ML (PMX) 50 ML IVPB ONE (06:00)
[2016-09-05] MEDS ORDERED: EPHEDrine SULFATE 50 MG/5 ML SYG ONE (07:00)
[2016-09-05] MEDS ORDERED: LIDOCAINE 2% (SDV) 5 ML INJ ONE (07:00)
[2016-09-05] MEDS: DOCUSATE SODIUM 100 MG CAP PO SCH ×3 (09:00→21:31)
--- NOTE | 2016-09-05 09:12 | PN ---
Date/Time of Note Date/Time of Note DATE: 09/05/16 TIME: 09:10 Assessment/Plan Lines/Catheters IV Catheter Type (from Nrsg): Peripheral IV Gutierres in Place (from Nrsg): Yes Assessment/Plan Assessment/Plan MRI C-spine 09/04 - there is still cord edema plan for surgery this afternoon - risks/benefits/alternatives d/w patient who consents for procedure NPO status 2g ancef ui application developer to OR Subjective 24 Hr Interval Summary patient c/o neck pain continues to note changes in arms Exam/Review of Systems Vital Signs Vitals Vital Signs Date Time Temp Pulse Resp B/P Pulse Ox O2 Delivery O2 Flow Rate FiO2 09/05/16 07:00 97.7 56 20 125/76 97 09/03/16 16:00 Room Air 09/02/16 10:06 2.0 Intake and Output 09/04/16 09/04/16 09/05/16 15:00 23:00 07:00 Intake Total 60 ml 1660 ml 550 ml Output Total 1400 ml 1600 ml Balance 60 ml 260 ml -1050 ml Exam Free Text/Dictation updated MRI C-spine 09/04 reviewed Results Result Diagram: 09/04/16 0425 09/04/16 0425 CARTER TEJADA PA-C Sep 05, 2016 09:12
--- NOTE | 2016-09-05 09:18 | RADRPT ---
PROCEDURE: MR Cervical Spine with and without contrast. CLINICAL INDICATION: Postoperative. TECHNIQUE: Multiplanar multisequence MRI of the cervical spine was performed before and following t he intravenous administration of 10 cc of Magnevist. COMPARISON: Postoperative noncontrast MRI of the cervical spine from September 02, 2016. FINDINGS: The patient is again noted to be status post bilateral C3-C7 laminectomies. Previous noted dorsal d rainage catheter has been removed. There is a new dorsal subcutaneous fluid collection noted at the C7-T1 level with a small amount of fluid continues with previous noted is catheter tract. This evgeny ures 3.6 cm transverse by 1.7 cm anteroposteriorly by a caudally. There is mild peripheral enhancem ent. There is also a paraspinal fluid collection continuous with this collection most pronounced at the C3-C4 level measuring 2.2 cm transverse by 1.7 cm anteroposteriorly by 2.0 cm cranial caudally. These fluid collections are confluent from the C2-C3 to the T1-T2 levels. Findings are most compat ible with a postoperative seroma. There is straightening of the normal cervical lordosis. The vertebral body heights are maintained. There is normal alignment. There is no destructive osseous lesion.There is no abnormal bone marrow edema. There is disk desiccation from C2-C3 to C6-C7. There is intramedullary T2 hyperintensity again noted at the C4-C5 level most compatible with myelom alacia. There is also intramedullary T2 hyperintensity from the C4 to the C7 levels again noted sugg esting spinal cord edema/myelomalacia. There is no abnormal spinal cord enhancement. C2-C3 : There is no disc herniation, spinal canal, or foraminal stenosis. This level is unchanged. C3-C4 : There is a 1 mm broad-based disk osteophyte complex with bilateral laminectomies without spi nal canal stenosis. There is mild bilateral facet arthropathy and bilateral uncovertebral hypertrop hy causing moderate bilateral foraminal stenosis. This level is unchanged. C4-C5 : There is mild disk space narrowing. There is a 6 mm central disk extrusion with T1 hyperint ensity extending 18 cranial caudally extending superiorly and inferiorly in the subligamentous regio n extending inferiorly to the C5-C6 endplate. This may represent a large disk extrusion however sup erimposed epidural hematoma is not excluded. Bilateral laminectomies are again noted with the theca l sac at this level measures 6 mm anteroposteriorly compatible with moderate to severe thecal sac ef facement. There is spinal cord impingement again noted. There is bilateral uncovertebral hypertroph y causing severe left with moderate right foraminal stenosis. This likely affects the exiting left C5 nerve root. This level is unchanged. C5-C6 : There is mild disk space narrowing. There is a 4 mm left paracentral disk extrusion which e xtends inferiorly in the subligamentous region which is difficult to evaluate. Bilateral laminectom ies are noted with the thecal sac within this region measuring 7 mm compatible with moderate thecal sac effacement with spinal cord impingement again noted . There is mild bilateral facet arthropathy and bilateral uncovertebral hypertrophy with mild right without left foraminal stenosis. This leve l is unchanged. C6-C7 : There is severe disk space narrowing. There is 1 mm of retrolisthesis with a 5 mm left para central disk/osteophyte protrusion with bilateral laminectomies with the thecal sac within this faviola on measuring 6 mm compatible moderate to severe thecal sac effacement with spinal cord impingement. There is moderate bilateral facet arthropathy and bilateral uncovertebral hypertrophy causing severe bilateral foraminal stenosis. This affects the exiting bilateral C7 nerve roots. This level is unc hanged. C7-T1 : There is no disk herniation or spinal canal stenosis. There are bilateral laminectomies wit h moderate bilateral facet arthropathy without spinal canal stenosis. There is no bilateral foramin al stenosis. This level is unchanged. IMPRESSION: 1. Interval removal of drainage catheter. There is a new posterior epidural/subcutaneous mildly pe ripherally enhancing fluid collection now noted extending from the C2-C3 to the T1-T2 levels most co mpatible with a postoperative seroma as detailed above. 2. Stable bilateral laminectomies from the C3 to the C7 levels. 3. C4-C5 to C6-C7 disk osteophyte complexes as detailed above causing moderate to severe C4-C5, mod erate C5-C6, and moderate to severe C6-C7 thecal sac effacement with stable multilevel spinal cord i mpingement. There is stable intramedullary T2 hyperintensity from C4-C5 to C6-C7 most compatible wit h spinal cord edema/myelomalacia. 4. C4-C5 central disk extrusion with ventral subligamentous signal measuring 18 mm cranial caudally in the subligamentous region which may represent large disk extrusion however superimposed epidural hematoma is not excluded. There is severe thecal sac effacement again noted at this level. There is stable focal C4-C5 myelomalacia. 5. Stable multilevel bilateral foraminal stenosis as detailed above. 6. No abnormal spinal cord enhancement. Further findings as detailed above. RPTAT: PP .Mickey Leavitt MD, MD Date Time Electronically viewed and signed by .Mickey Leavitt MD, on 09/05/2016 09:18 .F/
--- NOTE | 2016-09-05 10:11 | CONS ---
Date/Time of Note Date/Time of Note DATE: 09/05/16 TIME: 10:10 Assessment/Plan Assessment/Plan Additional Assessment/Plan 1. Stable post op cx laminectomy, 2nd procedure planned today 2. Labs rev Consultation Date/Type/Reason Admit Date/Time Sep 01, 2016 at 17:14 Detailed Summary Respiratory: No cough, No shortness of breath Cardiovascular: No chest pain Gastrointestinal: no complaints Genitourinary: other (valdez in place) Musculoskeletal: neck pain (mild) Exam/Review of Systems Vital Signs Vitals Vital Signs Date Time Temp Pulse Resp B/P Pulse Ox O2 Delivery O2 Flow Rate FiO2 09/05/16 07:00 97.7 56 20 125/76 97 09/03/16 16:00 Room Air 09/02/16 10:06 2.0 Intake and Output 09/04/16 09/04/16 09/05/16 15:00 23:00 07:00 Intake Total 60 ml 1660 ml 550 ml Output Total 1400 ml 1600 ml Balance 60 ml 260 ml -1050 ml Exam Neck: No jvd Respiratory: clear to auscultation Cardiovascular: regular rate and rhythm Extremities: No edema (and no calf tend) Results Result Diagram: 09/04/16 0425 09/04/16 0425 Medications Medications Current Medications Potassium Chloride/Dextrose/ Sod Cl (D5-1/2ns + KCl 20 Meq) 1,000 ml @ 100 mls/ hr Q10H IV Last administered on 09/04/16t 21:09; Admin Dose 100 MLS/HR; Start 09/01/16 at 11:50 Oxycodone/ Acetaminophen (Endocet (10/ 325)) 1 tab Q4H PRN PO PAIN LEVEL 1-5; Start 09/03/16 at 10:00; Status Future Hold Oxycodone/ Acetaminophen (Endocet (10/ 325)) 2 tab Q4H PRN PO PAIN LEVEL 6-10; Start 09/03/16 at 10:00; Status Future Hold Hydromorphone HCl (Dilaudid) 0.2 mg Q1H PRN IV BREAKTHROUGH PAIN; Start at 12:00 Zolpidem Tartrate (Ambien) 10 mg HS PRN PO INSOMNIA; Start 09/01/16 at 12:00 Ondansetron HCl (Zofran Inj) 4 mg Q6H PRN IV NAUSEA AND/OR VOMITING Last administered on 09/02/16 12:35; Admin Dose 4 MG; Start 09/01/16 at 12:00 Bisacodyl (Dulcolax Supp) 10 mg DAILY PRN [place] CONSTIPATION; Start 09/01/16 at 12 :00 Docusate Sodium (Colace) 100 mg BID PO Last administered on 09/04/16 21:08; Admin Dose 100 MG; Start 09/01/16 at 21:00 Al Hydrox/Mg Hydrox/Simethicone (Mag-Al Plus) 15 ml Q6H PRN PO CONSTIPATION/ DYSPEPSIA; Start 09/01/16 at 12:00 Acetaminophen (Tylenol Tab) 650 mg Q4H PRN PO MOSCOSO OR TEMP GREATER THAN 101.3F; Start 09/01/16 at 12:00 Cyclobenzaprine HCl (Flexeril) 10 mg TID PRN PO MUSCLE SPASMS; Start 09/01/16 at 12:00 Phenol (Cepastat Lozenge) 1 lozenge PRN PRN MT SORE THROAT Last administered on 09/04/16 21:08; Admin Dose 5 LOZENGE; Start 09/01/16 at 12:00 Diphenhydramine HCl (Benadryl) 25 mg Q6H PRN IV ITCHING; Start 09/01/16 at 12: 00 Naloxone HCl (Narcan) 0.2 mg Q2M PRN IV RR 8 BREATHS/MIN OR LESS; Start at 12:00 Hydromorphone HCl (Dilaudid ADMINISTRATIVE TECHNICIAN) ADMINISTRATIVE TECHNICIAN to be started in PACU Q4PCA IV Last administered on 09/05/16 05:32; Admin Dose 6 MG; Start 09/01/16 at 12:00; Status Future hold Dexamethasone (Decadron) 2 mg Q6 IV Last administered on 09/05/16 05:31; Admin Dose 2 MG; Start 09/03/16 at 06:00; Stop 09/05/16 at 18:00 YUAN RAVI MD Sep 05, 2016 10:11
[2016-09-05] MEDS ORDERED: GELATIN SIZE 100 SPONGE ONE (14:18)
[2016-09-05] MEDS ORDERED: POLYMYXIN/BACITRACIN 1L IRRIG ONE ×3 (14:18→18:35)
[2016-09-05] MEDS ORDERED: SURGIFOAM POWDER 1 GM KIT ONE (14:18)
[2016-09-05] MEDS ORDERED: BUPIVACAINE 0.25%/EPI (SDV) 30 ML INJ ONE (14:18)
[2016-09-05] MEDS ORDERED: PROPOFOL 100 ML ONE (14:37)
[2016-09-05] MEDS ORDERED: ROCURONIUM 50 MG INJ ONE ×2 (14:37→16:36)
[2016-09-05] MEDS ORDERED: HYDROmorphONE 2 MG/ML SYG ONE (14:37)
[2016-09-05] MEDS ORDERED: METOCLOPRAMIDE 10 MG INJ ONE (14:37)
[2016-09-05] MEDS ORDERED: SUCCINYLCHOLINE CHLORIDE 100 MG/5 ML SYG IV ONE ×2 (14:37→19:00)
[2016-09-05] MEDS ORDERED: FENTAnyl 50 MCG/ML VIAL ONE (14:37)
[2016-09-05] MEDS ORDERED: PROPOFOL 20 ML ONE (14:37)
[2016-09-05] MEDS ORDERED: ONDANSETRON 4 MG INJ ONE (14:37)
[2016-09-05] MEDS ORDERED: DEXAMETHASONE 4 MG/ML 1 ML INJ ONE (14:38)
[2016-09-05] MEDS ORDERED: MIDAZOLAM 1 MG/ML 2 ML INJ ONE (14:39)
[2016-09-05] MEDS ORDERED: CEFAZOLIN 1 GM INJ ONE (15:19)
[2016-09-05] MEDS ORDERED: GENTAMICIN 80 MG INJ ONE (15:20)
[2016-09-05] MEDS: THROMBIN 5000 UNIT VIAL ONE ×2 (15:51→15:52)
[2016-09-05] MEDS ORDERED: METOCLOPRAMIDE 10 MG INJ IV PRN (19:30)
[2016-09-05] MEDS ORDERED: HYDROmorphONE (0.2 MG/ML) 10ML SYG IV PRN ×3 (19:30)
[2016-09-05] MEDS ORDERED: DIPHENHYDRAMINE 50 MG INJ IV PRN ×2 (19:30→20:00)
[2016-09-05] MEDS ORDERED: ONDANSETRON 4 MG INJ IV PRN ×2 (19:30→20:00)
[2016-09-05] MEDS ORDERED: MEPERIDINE 25 MG INJ IV PRN (19:30)
[2016-09-05] MEDS ORDERED: AL HYDROX/MG HYDROX/SIMETH 30 ML CUP PO PRN (20:00)
[2016-09-05] MEDS ORDERED: ZOLPIDEM 5 MG TAB PO PRN (20:00)
[2016-09-05] MEDS ORDERED: CYCLOBENZAPRINE 10 MG TAB PO PRN (20:00)
[2016-09-05] MEDS ORDERED: BISACODYL 10 MG SUPP PR PRN (20:00)
[2016-09-05] MEDS ORDERED: CEPASTAT LOZENGE MT PRN (20:00)
[2016-09-05] MEDS ORDERED: NALOXONE (0.4 MG/ML) INJ IV PRN (20:00)
[2016-09-05] MEDS ORDERED: ACETAMINOPHEN 325 MG TAB PO PRN (20:00)
[2016-09-05] MEDS ORDERED: OXYCODONE/ACETAMINOPHEN (10/325) TAB PO PRN (20:00)
[2016-09-05] MEDS ORDERED: DEXAMETHASONE 4 MG/ML 1 ML INJ IV SCH (20:00)
[2016-09-05] MEDS: CEFAZOLIN 1 GM/50 ML (PMX) 50 ML IVPB SCH (21:16)
--- NOTE | 2016-09-05 21:26 | RADRPT ---
PROCEDURE: Intraoperative fluoroscopy. CLINICAL INDICATION: Intraoperative fluoroscopy during cervical fusion. TECHNIQUE: 8 spot intraoperative fluoroscopic images were provided. The images were reviewed on a high-resolution PACS workstation. COMPARISON: None available FINDINGS: Multiple spot intraoperative fluoroscopic views were provided during cervical fusion. The images de monstrate additional metallic probe at the level of C4-5 and C5-6. Subsequent images demonstrate pl acement of anterior vertebral body screws and anterior spinal fusion plates as well as vertebral dis c-spacers at C4-5, C5-6 and C6-7. The total fluoroscopy time was 2.6 seconds. IMPRESSION: 1. Multiple spot intraoperative fluoroscopic views during cervical fusion were provided. 2. Please see operative report of the same day for further information. RPTAT: HGAS .Adrián Guzman MD, Date Time Electronically viewed and signed by .Adrián Guzman MD, on 09/05/2016 21:26 .S/
[2016-09-06] VITALS (12 sets, daily range): BP systolic 120–155; BP diastolic 72–87; PULSE 60–72; RESP 8–21
[2016-09-06] MEDS ORDERED: HYDROmorphONE 0.2 MG/ML PCA ONE (03:14)
[2016-09-06] MEDS: HYDROmorphONE 0.2 MG/ML PCA IV SCH ×3 (03:22→23:42)
[2016-09-06] MEDS: CEFAZOLIN 1 GM/50 ML (PMX) 50 ML IVPB SCH ×2 (04:01→13:34)
[2016-09-06 04:54] LABS: ADD SCAN DIFF NO
[2016-09-06 05:02] LABS: ABNORMAL IP MESSAGE 1; BASOPHIL # 0.1 10^3/ul (0.0-0.1); BASOPHILS % 0.4 % (0.0-2.0); EOSINOPHILS % 0.1 % (0.0-7.0); HEMATOCRIT 36.9 % (42.0-52.0); LYMPHOCYTES # 2.9 10^3/ul (0.8-2.9); LYMPHOCYTES % 16.1 % (15.0-51.0); MEAN CORPUSCULAR HEMOGLOBIN 30.8 pg (29.0-33.0); MEAN CORPUSCULAR HGB CONC 35.2 g/dl (32.0-37.0); MEAN CORPUSCULAR VOLUME 87.4 fl (82.0-101.0); MEAN PLATELET VOLUME 10.5 fl (7.4-10.4); MONOCYTE # 1.6 10^3/ul (0.3-0.9); MONOCYTES % 8.6 % (0.0-11.0); NEUTROPHIL # 12.8 10^3/ul (1.6-7.5); PLATELET COUNT 248 10^3/UL (140-415); RED BLOOD COUNT 4.22 10^6/ul (4.70-6.10); RED CELL DISTRIBUTION WIDTH 11.6 % (11.5-14.5); WHITE BLOOD COUNT 18.1 10^3/ul (4.8-10.8)
[2016-09-06 05:19] LABS: CALCIUM 8.7 mg/dl (8.4-10.2); CREATININE 0.75 mg/dl (0.61-1.24); POTASSIUM 4.3 mmol/L (3.5-5.1)
[2016-09-06] MEDS: D5W-0.45 NACL + KCL 20 MEQ 1,000 ML IV SCH ×3 (08:26→20:31)
--- NOTE | 2016-09-06 11:00 | PN ---
Date/Time of Note Date/Time of Note DATE: 09/06/16 TIME: 10:58 Assessment/Plan Lines/Catheters IV Catheter Type (from Nrs): Peripheral IV Gutierres in Place (from Nrs): Yes Assessment/Plan Assessment/Plan s.p cervical fusion patient feels improved sore throat MRI tonight cont current regimen PT Subjective 24 Hr Interval Summary sore throat feel more sensation in extremities Exam/Review of Systems Vital Signs Vitals Vital Signs Date Time Temp Pulse Resp B/P Pulse Ox O2 Delivery O2 Flow Rate FiO2 09/06/16 10:04 62 11 129/81 95 Room Air 09/06/16 07:04 98.1 09/05/16 19:57 6.0 Intake and Output 09/05/16 09/05/16 09/06/16 15:00 23:00 07:00 Intake Total 1300 ml 2000 ml 1580 ml Output Total 1750 ml 1810 ml Balance 1300 ml 250 ml -230 ml Exam Free Text/Dictation myelopathic finidings improving Results Result Diagram: 09/06/16 0425 09/06/16 0425 PERLA RACHEL MD Sep 06, 2016 11:00
--- NOTE | 2016-09-06 11:51 | CONS ---
Date/Time of Note Date/Time of Note DATE: 09/06/16 TIME: 11:50 Assessment/Plan Assessment/Plan Additional Assessment/Plan Stable post op course. Cervical fusion yesterday MRI tonight PT today pain control diet dvt ppx Consultation Date/Type/Reason Admit Date/Time Sep 01, 2016 at 17:14 Initial Consult Date 24 HR Interval Summary Free Text/Dictation Has some pain, starting to eat. Anticipating PT today Exam/Review of Systems Vital Signs Vitals Vital Signs Date Time Temp Pulse Resp B/P Pulse Ox O2 Delivery O2 Flow Rate FiO2 09/06/16 10:04 62 11 129/81 95 Room Air 09/06/16 07:04 98.1 09/05/16 19:57 6.0 Intake and Output 09/05/16 09/05/16 09/06/16 15:00 23:00 07:00 Intake Total 1300 ml 2000 ml 1580 ml Output Total 1750 ml 1810 ml Balance 1300 ml 250 ml -230 ml Exam Constitutional: alert, oriented, well developed Respiratory: clear to auscultation, normal air movement Cardiovascular: nl pulses, regular rate and rhythm Results Result Diagram: 09/06/16 0425 09/06/16 0425 Results 24 hrs Laboratory Tests Test 09/06/16 04:25 White Blood Count 18.1 H Red Blood Count 4.22 L Hemoglobin 13.0 L Hematocrit 36.9 L Mean Corpuscular Volume 87.4 Mean Corpuscular Hemoglobin 30.8 Mean Corpuscular Hemoglobin Concent 35.2 Red Cell Distribution Width 11.6 Platelet Count 248 Mean Platelet Volume 10.5 H Neutrophils % 71.0 Lymphocytes % 16.1 Monocytes % 8.6 Eosinophils % 0.1 Basophils % 0.4 Nucleated Red Blood Cells % 0.0 Neutrophils # 12.8 H Lymphocytes # 2.9 Monocytes # 1.6 H Eosinophils # 0.0 Basophils # 0.1 Nucleated Red Blood Cells # 0.0 Sodium Level 134 L Potassium Level 4.3 Chloride Level 99 Carbon Dioxide Level 30 Anion Gap 9 Blood Urea Nitrogen 18 Creatinine 0.75 Glucose Level 127 Calcium Level 8.7 Magnesium Level 1.9 Medications Medications Current Medications Potassium Chloride/Dextrose/ Sod Cl (D5-1/2ns + KCl 20 Meq) 1,000 ml @ 100 mls/ hr Q10H IV Last administered on 09/06/16t 08:26; Admin Dose 100 MLS/HR; Start 09/05/16 at 19:55 Oxycodone/ Acetaminophen (Endocet (10/ 325)) 1 tab Q4H PRN PO PAIN LEVEL 1-5; Start 09/05/16 at 20:00 Oxycodone/ Acetaminophen (Endocet (10/ 325)) 2 tab Q4H PRN PO PAIN LEVEL 6-10; Start 09/05/16 at 20:00 Hydromorphone HCl 0.2 mg 0.2 mg Q1H PRN IV BREAKTHROUGH PAIN; Start 09/05/16 at 20:00 Cefazolin Sodium (Ancef 1 Gm/50 ml (Pmx)) 50 ml @ 100 mls/hr Q8H IVPB Last administered on 09/06/16t 04:01; Admin Dose 100 MLS/HR; Start 09/05/16 at 20:00 ; Stop 09/06/16 at 12:29 Ondansetron HCl (Zofran Inj) 4 mg Q6H PRN IV NAUSEA AND/OR VOMITING; Start at 20:00 Bisacodyl (Dulcolax Supp) 10 mg DAILY PRN [place] CONSTIPATION; Start 09/05/16 at 20 :00 Docusate Sodium (Colace) 100 mg BID PO Last administered on 09/05/16t 21:19; Admin Dose 100 MG; Start 09/05/16 at 21:00 Al Hydrox/Mg Hydrox/Simethicone (Mag-Al Plus) 15 ml Q6H PRN PO CONSTIPATION/ DYSPEPSIA; Start 09/05/16 at 20:00 Acetaminophen (Tylenol Tab) 650 mg Q4H PRN PO MOSCOSO OR TEMP GREATER THAN 101.3F; Start 09/05/16 at 20:00 Cyclobenzaprine HCl (Flexeril) 10 mg TID PRN PO MUSCLE SPASMS; Start 09/05/16 at 20:00 Phenol (Cepastat Lozenge) 1 lozenge PRN PRN MT SORE THROAT; Start 09/05/16 at 20:00 Diphenhydramine HCl (Benadryl) 25 mg Q6H PRN IV ITCHING; Start 09/05/16 at 20: 00 Naloxone HCl (Narcan) 0.2 mg Q2M PRN IV RR 8 BREATHS/MIN OR LESS; Start at 20:00 Hydromorphone HCl (Dilaudid DATA OFFICER) DATA OFFICER to be started in PACU Q4PCA IV Last administered on 09/06/16t 03:22; Admin Dose 6 MG; Start 09/05/16 at 20:00 Miscellaneous Information 1. Hold DATA OFFICER at 1,000... DATA OFFICER IV ; Start 09/05/16 at 20: 00 Dexamethasone (Decadron) 2 mg Q6 IV ; Start 09/07/16 at 20:00; Stop 09/08/16 at 20:00 APOLLO STAHL MD Sep 06, 2016 11:51
--- NOTE | 2016-09-06 16:06 | RADRPT ---
PROCEDURE: MR Cervical Spine with and without contrast. CLINICAL INDICATION: Neck pain radiating to right arm. Postoperative. TECHNIQUE: Multiplanar multisequence MRI of the cervical spine was performed before and following t he intravenous administration of 10 cc of Magnevist.. COMPARISON: Preoperative noncontrast MRI of the cervical spine from September 04, 2016. FINDINGS: The patient is status post interval anterior cervical discectomy and fusion from the C4 to the C7 le vels. This causes susceptibility artifact limiting evaluation. Bilateral laminectomies are again no anika from the C3 to the C7 levels. Within the postoperative site there is peripheral enhancing fluid collection extending from the C2-C3 to the C7-T1 levels extending to the posterior dura most compat ible to postoperative seroma. There is straightening of the normal cervical lordosis. The vertebral body heights are maintained. There is no destructive osseous lesion.There is no abnormal bone marrow edema. The discs are normal in height and signal. There is a focal T2 hyperintensity within the spinal cord at the at the C4 level suggesting myelomal acia. This also noted focally at the C6-C7 level with associated volume loss compatible with myelom alacia. There is decrease intramedullary T2 hyperintensity from the C4 to the C7 levels compatible w ith improving spinal cord edema. C2-C3 : There is no disc herniation, spinal canal, or foraminal stenosis. This level is unchanged. C3-C4 : There is a 1 mm broad-based disk osteophyte complex with bilateral laminectomies with new tr iram retrolisthesis with increased 2 mm central disk bulge now mildly indenting the spinal cord with increased thecal sac effacement with moderate thecal sac stenosis with the AP diameter measuring 7 m m previously measuring 9 mm. There is mild bilateral facet arthropathy and bilateral uncovertebral hypertrophy causing moderate bilateral foraminal stenosis. C4-C5 : There has been interval resection of previous noted subligamentous/epidural ventral soft tis amira with resolution of spinal cord impingement at this level. There is improved mild thecal sac effa cement which previously was moderate to severe. Bilateral laminectomies are again noted. There is bi lateral uncovertebral hypertrophy causing stable severe left with moderate right foraminal stenosis. This likely affects the exiting left C5 nerve root. C5-C6 : There is mild disk space narrowing. There is decrease in size of previous noted left paracen tral disk extrusion measuring 2 mm previously measuring 4 mm. There is improved mild thecal sac eff acement which previously was moderate. There is resolved spinal cord impingement. Bilateral isaac ctomies are again noted. There is mild bilateral facet arthropathy and bilateral uncovertebral hyper trophy with stable mild right without left foraminal stenosis. C6-C7 : There is severe disk space narrowing. There is 1 mm of retrolisthesis with decrease in previ ous noted left central disk osteophyte complex measuring 2 mm previously measuring 5 mm. Bilateral laminectomies are again noted with improved mild thecal sac effacement which previously was moderate to severe with resolution of spinal cord impingement. There is moderate bilateral facet arthropathy and bilateral uncovertebral hypertrophy causing stable severe bilateral foraminal stenosis. This af fects the exiting bilateral C7 nerve roots. This level is unchanged. C7-T1 : There is no disk herniation or spinal canal stenosis. There are bilateral laminectomies with moderate bilateral facet arthropathy without spinal canal stenosis. There is no bilateral foraminal stenosis. This level is unchanged. The paravertebral musculature are within normal limits. IMPRESSION: 1. Status post interval anterior cervical discectomy and fusion from the C4 to the C7 levels. Bila teral laminectomies are again noted from the C3 to the C7 levels. There is a postoperative seroma fr om the C3 to the C7 levels again noted. 2. Decreased spinal cord edema from the C4 to the C7 levels with residual focal myelomalacia at C4 as well as focal myelomalacia and volume loss at the C7 level. 3. Interval C4-C5 resection of previous noted subligamentous/epidural ventral soft tissue with reso lution of spinal cord impingement at this level. There is improved mild thecal sac effacement which with stable bilateral laminectomies. 4. Decreased C5-C6 left paracentral disk protrusion with improved mild thecal sac effacement with r esolution of spinal cord impingement with stable bilateral laminectomies. 5. Stable C6-C7 minimal retrolisthesis with decrease in previous noted left central disk osteophyte complex with stable bilateral laminectomies and improved mild thecal sac effacement with resolution of spinal cord impingement. 6. Stable bilateral foraminal stenosis affecting the exiting left C5 and bilateral C7 nerve roots a s detailed above. 7. No abnormal bone marrow edema. 8. No abnormal spinal cord enhancement. Further findings as detailed above. RPTAT: PP .Mickey Leavitt MD, MD Date Time Electronically viewed and signed by .Mickey Leavitt MD, MD on 09/06/2016 16:06 .F/
[2016-09-06] MEDS: DOCUSATE SODIUM 100 MG CAP PO SCH (20:31)
[2016-09-07] MEDS: D5W-0.45 NACL + KCL 20 MEQ 1,000 ML IV SCH ×2 (01:55→05:55)
[2016-09-07 05:35] LABS: ABNORMAL IP MESSAGE 1; ADD SCAN DIFF NO; BASOPHILS % 0.2 % (0.0-2.0); EOSINOPHILS # 0.2 10^3/ul (0.0-0.5); EOSINOPHILS % 1.2 % (0.0-7.0); HEMATOCRIT 38.7 % (42.0-52.0); HEMOGLOBIN 13.6 g/dl (14.0-18.0); LYMPHOCYTES # 2.8 10^3/ul (0.8-2.9); LYMPHOCYTES % 17.4 % (15.0-51.0); MEAN CORPUSCULAR HEMOGLOBIN 30.5 pg (29.0-33.0); MEAN CORPUSCULAR HGB CONC 35.1 g/dl (32.0-37.0); MEAN CORPUSCULAR VOLUME 86.8 fl (82.0-101.0); MEAN PLATELET VOLUME 10.6 fl (7.4-10.4); MONOCYTE # 1.7 10^3/ul (0.3-0.9); MONOCYTES % 10.7 % (0.0-11.0); NEUTROPHIL # 10.7 10^3/ul (1.6-7.5); NEUTROPHILS % 65.8 % (39.0-77.0); PLATELET COUNT 190 10^3/UL (140-415); RED BLOOD COUNT 4.46 10^6/ul (4.70-6.10); RED CELL DISTRIBUTION WIDTH 11.7 % (11.5-14.5); WHITE BLOOD COUNT 16.3 10^3/ul (4.8-10.8)
[2016-09-07 06:08] LABS: POTASSIUM 3.6 mmol/L (3.5-5.1)
[2016-09-07 06:11] LABS: CREATININE 0.71 mg/dl (0.61-1.24)
[2016-09-07 06:12] LABS: CALCIUM 8.3 mg/dl (8.4-10.2); MAGNESIUM 1.8 mg/dl (1.7-2.5)
[2016-09-07 08:03] VITALS: BP 133/79; RESP 18
[2016-09-07] MEDS: DOCUSATE SODIUM 100 MG CAP PO SCH ×2 (10:04→21:27)
[2016-09-07] MEDS: OXYCODONE/ACETAMINOPHEN (10/325) TAB PO PRN ×2 (10:04→16:26)
--- NOTE | 2016-09-07 10:23 | PN ---
Date/Time of Note Date/Time of Note DATE: 09/07/16 TIME: 10:22 Assessment/Plan Lines/Catheters IV Catheter Type (from Nrsg): Peripheral IV Gutierres in Place (from Nrsg): Yes Assessment/Plan Assessment/Plan s/p cervical decompression and fusion d/c drain oob pt oral pain meds difficulty swallowing with sore throat - expected given anterior surgery. will follow. if no improvement, will consider swallow study or ENT Subjective 24 Hr Interval Summary felling better c/o sore throat Exam/Review of Systems Vital Signs Vitals Vital Signs Date Time Temp Pulse Resp B/P Pulse Ox O2 Delivery O2 Flow Rate FiO2 09/07/16 08:03 98.0 18 133/79 96 09/06/16 20:16 71 09/06/16 10:50 Room Air 09/05/16 19:57 6.0 Intake and Output 09/06/16 09/06/16 09/07/16 15:00 23:00 07:00 Intake Total 2850 ml 1270 ml Output Total 1140 ml 1925 ml Balance 1710 ml -655 ml Exam Free Text/Dictation improved neuro exam Results Result Diagram: 09/07/16 0500 09/07/16 0500 PERLA RACHEL MD Sep 07, 2016 10:23
--- NOTE | 2016-09-07 10:51 | CONS ---
Date/Time of Note Date/Time of Note DATE: 09/07/16 TIME: 10:49 Assessment/Plan Assessment/Plan Additional Assessment/Plan Stable post op course so far MRI improved PT drains to be removed today pain control monitor throat pain, may need swallow eval if cannot tolerate oral diet Consultation Date/Type/Reason Admit Date/Time Sep 01, 2016 at 17:14 24 HR Interval Summary Free Text/Dictation still having throat pain when swallowing, but no nausea or vomiting. About to walk with PT. Pain fairly well controlled. Exam/Review of Systems Vital Signs Vitals Vital Signs Date Time Temp Pulse Resp B/P Pulse Ox O2 Delivery O2 Flow Rate FiO2 09/07/16 08:03 98.0 18 133/79 96 09/06/16 20:16 71 09/06/16 10:50 Room Air 09/05/16 19:57 6.0 Intake and Output 09/06/16 09/06/16 09/07/16 15:00 23:00 07:00 Intake Total 2850 ml 1270 ml Output Total 1140 ml 1925 ml Balance 1710 ml -655 ml Exam Constitutional: alert, oriented, well developed Respiratory: clear to auscultation, normal air movement Cardiovascular: nl pulses, regular rate and rhythm Results Result Diagram: 09/07/16 0500 09/07/16 0500 Results 24 hrs Laboratory Tests Test 09/07/16 05:00 White Blood Count 16.3 H Red Blood Count 4.46 L Hemoglobin 13.6 L Hematocrit 38.7 L Mean Corpuscular Volume 86.8 Mean Corpuscular Hemoglobin 30.5 Mean Corpuscular Hemoglobin Concent 35.1 Red Cell Distribution Width 11.7 Platelet Count 190 # Mean Platelet Volume 10.6 H Neutrophils % 65.8 Lymphocytes % 17.4 Monocytes % 10.7 Eosinophils % 1.2 Basophils % 0.2 Nucleated Red Blood Cells % 0.0 Neutrophils # 10.7 H Lymphocytes # 2.8 Monocytes # 1.7 H Eosinophils # 0.2 Basophils # 0.0 Nucleated Red Blood Cells # 0.0 Sodium Level 130 L Potassium Level 3.6 Chloride Level 94 L Carbon Dioxide Level 28 Anion Gap 12 Blood Urea Nitrogen 20 Creatinine 0.71 Glucose Level 122 Calcium Level 8.3 L Magnesium Level 1.8 Medications Medications Current Medications Potassium Chloride/Dextrose/ Sod Cl (D5-1/2ns + KCl 20 Meq) 1,000 ml @ 100 mls/ hr Q10H IV Last administered on 09/07/16 05:55; Admin Dose 100 MLS/HR; Start 09/05/16 at 19:55 Oxycodone/ Acetaminophen (Endocet (10/ 325)) 1 tab Q4H PRN PO PAIN LEVEL 1-5; Start 09/05/16 at 20:00 Oxycodone/ Acetaminophen (Endocet (10/ 325)) 2 tab Q4H PRN PO PAIN LEVEL 6-10 Last administered on 09/07/16 10:04; Admin Dose 2 TAB; Start 09/05/16 at 20:00 Hydromorphone HCl (Dilaudid) 0.2 mg Q1H PRN IV BREAKTHROUGH PAIN; Start at 20:00 Ondansetron HCl (Zofran Inj) 4 mg Q6H PRN IV NAUSEA AND/OR VOMITING; Start at 20:00 Bisacodyl (Dulcolax Supp) 10 mg DAILY PRN [place] CONSTIPATION; Start 09/05/16 at 20 :00 Docusate Sodium (Colace) 100 mg BID PO Last administered on 09/07/16 10:04; Admin Dose 100 MG; Start 09/05/16 at 21:00 Al Hydrox/Mg Hydrox/Simethicone (Mag-Al Plus) 15 ml Q6H PRN PO CONSTIPATION/ DYSPEPSIA; Start 09/05/16 at 20:00 Acetaminophen (Tylenol Tab) 650 mg Q4H PRN PO MOSCOSO OR TEMP GREATER THAN 101.3F; Start 09/05/16 at 20:00 Cyclobenzaprine HCl (Flexeril) 10 mg TID PRN PO MUSCLE SPASMS Last administered on 09/06/16 22:10; Admin Dose 10 MG; Start 09/05/16 at 20:00 Phenol (Cepastat Lozenge) 1 lozenge PRN PRN [place] SORE THROAT; Start 09/05/16 at 20:00 Diphenhydramine HCl (Benadryl) 25 mg Q6H PRN IV ITCHING; Start 09/05/16 at 20: 00 Naloxone HCl (Narcan) 0.2 mg Q2M PRN IV RR 8 BREATHS/MIN OR LESS; Start 4/28/ 17 at 20:00 Hydromorphone HCl (Dilaudid CRITICAL CARE NURSE) CRITICAL CARE NURSE to be started in PACU Q4PCA IV Last administered on 09/06/16t 23:42; Admin Dose 6 MG; Start 09/05/16 at 20:00 Miscellaneous Information 1. Hold CRITICAL CARE NURSE at 1,000... CRITICAL CARE NURSE IV ; Start 09/05/16 at 20: 00 Dexamethasone (Decadron) 2 mg Q6 IV ; Start 09/07/16 at 20:00; Stop 09/08/16 at 20:00 APOLLO STAHL MD Sep 07, 2016 10:51
[2016-09-07 12:00] VITALS: BP 126/86; PULSE 76; RESP 18
[2016-09-07 16:00] VITALS: BP 135/80; PULSE 89; RESP 18
[2016-09-07 16:45] VITALS: BP 142/87; RESP 20
[2016-09-07 19:15] VITALS: BP 127/76; RESP 20
[2016-09-07] MEDS: DEXAMETHASONE 4 MG/ML 1 ML INJ IV SCH (21:26)
[2016-09-08] MEDS: DEXAMETHASONE 4 MG/ML 1 ML INJ IV SCH ×4 (02:14→18:38)
[2016-09-08 05:27] LABS: ADD SCAN DIFF NO
[2016-09-08 05:35] LABS: BASOPHIL # 0.1 10^3/ul (0.0-0.1); BASOPHILS % 0.3 % (0.0-2.0); EOSINOPHILS % 0.1 % (0.0-7.0); HEMATOCRIT 39.4 % (42.0-52.0); HEMOGLOBIN 14.2 g/dl (14.0-18.0); LYMPHOCYTES # 1.1 10^3/ul (0.8-2.9); LYMPHOCYTES % 5.6 % (15.0-51.0); MEAN CORPUSCULAR HEMOGLOBIN 31.1 pg (29.0-33.0); MEAN CORPUSCULAR VOLUME 86.4 fl (82.0-101.0); MEAN PLATELET VOLUME 10.5 fl (7.4-10.4); MONOCYTES % 5.1 % (0.0-11.0); NEUTROPHIL # 15.9 10^3/ul (1.6-7.5); NEUTROPHILS % 84.3 % (39.0-77.0); PLATELET COUNT 249 10^3/UL (140-415); RED BLOOD COUNT 4.56 10^6/ul (4.70-6.10); RED CELL DISTRIBUTION WIDTH 11.5 % (11.5-14.5); WHITE BLOOD COUNT 18.9 10^3/ul (4.8-10.8)
[2016-09-08 06:12] LABS: CREATININE 0.65 mg/dl (0.61-1.24); MAGNESIUM 2.1 mg/dl (1.7-2.5); POTASSIUM 4.5 mmol/L (3.5-5.1)
[2016-09-08] MEDS: HYDROmorphONE 1 MG/ML SYG IV PRN ×3 (07:59→22:38)
[2016-09-08] MEDS: DOCUSATE SODIUM 100 MG CAP PO SCH ×2 (08:05→21:00)
[2016-09-08 08:11] VITALS: BP 124/78; RESP 18
--- NOTE | 2016-09-08 08:27 | PN ---
Date/Time of Note Date/Time of Note DATE: 09/08/16 TIME: 08:25 Assessment/Plan Lines/Catheters IV Catheter Type (from Nrs): Peripheral IV Gutierres in Place (from Nrs): No Assessment/Plan Assessment/Plan s/p cervical decompression and fusion neuro improved but difficulty swallowing. will obtain ENT consult Subjective 24 Hr Interval Summary difficulty swallowing Exam/Review of Systems Vital Signs Vitals Vital Signs Date Time Temp Pulse Resp B/P Pulse Ox O2 Delivery O2 Flow Rate FiO2 09/08/16 08:11 97.8 81 18 124/78 90 09/07/16 16:00 Room Air 09/05/16 19:57 6.0 Intake and Output 09/07/16 09/07/16 09/08/16 15:00 23:00 07:00 Intake Total 450 ml 950 ml 520 ml Output Total 1300 ml 625 ml Balance 450 ml -350 ml -105 ml Exam Free Text/Dictation incision c/d/i neuro unchanged Results Result Diagram: 09/08/16 0435 09/08/16 0435 PERLA RACHEL MD September 08, 2016 08:26
--- NOTE | 2016-09-08 09:02 | CONS ---
Date/Time of Note Date/Time of Note DATE: 09/08/16 TIME: 08:59 Assessment/Plan Assessment/Plan Additional Assessment/Plan 1. Diff swallowing and burning post pharynx, swallow study has been ordered, will order PPI and ask ENT to see. 2. Hyponatremia, IV started, urine sodium ordered 3. Need for cont steroids ? 4. Elev sugar sec to steroids, will cover with ac insulin Consultation Date/Type/Reason Admit Date/Time Sep 01, 2016 at 17:14 Detailed Summary ENT: other (diff swallowing and back of his throat [place]) Respiratory: No cough, No shortness of breath Cardiovascular: No chest pain Gastrointestinal: No nausea, No pain Genitourinary: no complaints Musculoskeletal: neck pain (mild) Exam/Review of Systems Vital Signs Vitals Vital Signs Date Time Temp Pulse Resp B/P Pulse Ox O2 Delivery O2 Flow Rate FiO2 09/08/16 08:11 97.8 81 18 124/78 90 09/07/16 16:00 Room Air 09/05/16 19:57 6.0 Intake and Output 09/07/16 09/07/16 09/08/16 15:00 23:00 07:00 Intake Total 450 ml 950 ml 520 ml Output Total 1300 ml 625 ml Balance 450 ml -350 ml -105 ml Exam ENMT: other (post pharynx poorly vis, no erythema) Neck: No jvd Gastrointestinal: soft, No other Results Result Diagram: 09/08/16 0435 09/08/16 0435 Results 24 hrs Laboratory Tests Test 09/08/16 04:35 White Blood Count 18.9 H Red Blood Count 4.56 L Hemoglobin 14.2 Hematocrit 39.4 L Mean Corpuscular Volume 86.4 Mean Corpuscular Hemoglobin 31.1 Mean Corpuscular Hemoglobin Concent 36.0 Red Cell Distribution Width 11.5 Platelet Count 249 # Mean Platelet Volume 10.5 H Neutrophils % 84.3 H Lymphocytes % 5.6 L Monocytes % 5.1 Eosinophils % 0.1 Basophils % 0.3 Nucleated Red Blood Cells % 0.0 Neutrophils # 15.9 H Lymphocytes # 1.1 Monocytes # 1.0 H Eosinophils # 0.0 Basophils # 0.1 Nucleated Red Blood Cells # 0.0 Sodium Level 129 L Potassium Level 4.5 Chloride Level 96 L Carbon Dioxide Level 28 Anion Gap 10 Blood Urea Nitrogen 17 Creatinine 0.65 Glucose Level 169 Calcium Level 9.0 Magnesium Level 2.1 Medications Medications Current Medications Oxycodone/ Acetaminophen (Endocet (10 325)) 1 tab Q4H PRN PO PAIN LEVEL 1-5 Last administered on 09/07/16 21:26; Admin Dose 1 TAB; Start 09/05/16 at 20:00 Oxycodone/ Acetaminophen (Endocet (10 325)) 2 tab Q4H PRN PO PAIN LEVEL 6-10 Last administered on 09/07/16 16:26; Admin Dose 2 TAB; Start 09/05/16 at 20:00 Hydromorphone HCl (Dilaudid) 0.2 mg Q1H PRN IV BREAKTHROUGH PAIN Last administered on 09/08/16 07:59; Admin Dose 0.2 MG; Start 09/05/16 at 20:00 Ondansetron HCl (Zofran Inj) 4 mg Q6H PRN IV NAUSEA AND/OR VOMITING; Start at 20:00 Bisacodyl (Dulcolax Supp) 10 mg DAILY PRN [place] CONSTIPATION; Start 09/05/16 at 20 :00 Docusate Sodium (Colace) 100 mg BID PO Last administered on 09/07/16 21:27; Admin Dose 100 MG; Start 09/05/16 at 21:00 Al Hydrox/Mg Hydrox/Simethicone (Mag-Al Plus) 15 ml Q6H PRN PO CONSTIPATION/ DYSPEPSIA; Start 09/05/16 at 20:00 Acetaminophen (Tylenol Tab) 650 mg Q4H PRN PO MOSCOSO OR TEMP GREATER THAN 101.3F; Start 09/05/16 at 20:00 Cyclobenzaprine HCl (Flexeril) 10 mg TID PRN PO MUSCLE SPASMS Last administered on 09/06/16 22:10; Admin Dose 10 MG; Start 09/05/16 at 20:00 Phenol (Cepastat Lozenge) 1 lozenge PRN PRN MT SORE THROAT; Start 09/05/16 at 20:00 Diphenhydramine HCl (Benadryl) 25 mg Q6H PRN IV ITCHING; Start 09/05/16 at 20: 00 Naloxone HCl (Narcan) 0.2 mg Q2M PRN IV RR 8 BREATHS/MIN OR LESS; Start at 20:00 Dexamethasone (Decadron) 2 mg Q6 IV Last administered on 09/08/16t 06:45; Admin Dose 2 MG; Start 09/07/16 at 20:00; Stop 09/08/16 at 20:00 YUAN RAVI MD September 08, 2016 09:02
--- NOTE | 2016-09-08 11:05 | OPR ---
DATE OF OPERATION: 09/05/2016 PREOPERATIVE DIAGNOSES: 1. Cervical stenosis and myelopathy. 2. Previous posterior cervical decompression. POSTOPERATIVE DIAGNOSES: 1. Cervical stenosis and myelopathy. 2. Previous posterior cervical decompression. OPERATION PERFORMED 1. Anterior partial corpectomy at C4-C5, C6-C7. 2. Anterior cervical cord decompression at C4-5, C5-6, C6-7. 3. Anterior cervical fusion at C4-5, C5-6, C6-7. 4. Placement of intervertebral biomechanical device at C4-5, C5-6, C6-7. 5. Placement of anterior hardware at C4-C5, C6-C7. 6. Use of allograft. 7. Use of C-arm fluoroscopy with interpretation, without a radiologist present. 8. Use of operative microscope. 9. Intraoperative neuromonitoring (4 hours). IMPLANTS: 1. NeuroStructures Cavetto PEEK cages 5 mm at C4-5, 4 mm at C5-C6, 5 mm at C6-7. 2. NeuroStructures Transom 51-mm anterior cervical plate with 14-mm screws. 3. Fibergraft. PRIMARY SURGEON: Ayden Vicente MD LIFT SUPERVISOR: Michelle Grove PA-C NEED FOR MANAGER DOCUMENTATION: During this spinal surgical procedure, my assistant guest services manager was used to retrac t and protect the spinal nerves and dural sac. My assistant guest services manager also employed the suction catheters to evacuate blood from the surgical field to improve visualization of the neural structures. The shin tant was medically necessary to facilitate the completion of the surgery in a safe and expeditious ghassan. [facility] regulations, as well as hospital bylaws, preclude the use of non-license d health care personnel, such as operating room technicians, to perform these functions. FINDINGS: Neuromonitoring at the start of the case showed posterior tibial signal low, all nerve si gnals low, C5 signal low bilaterally, C6 signal low bilaterally, C7 signal low bilaterally. At the end of the case posterior tibial signals were normal, ulnar signals were normal, C5 signals were nor mal, C7 signals were normal, right C6 signal was normal, left C6 amplitude was down 10%. The patien t had severe stenosis at C4-5, C5-6 and C6-7, with significant spinal cord compression. Large extru ded fragment was seen at C4-C5 inferiorly, small extruded fragments seen at C5-C6 inferiorly. Poste rior osteophytes were seen at C6-7. At the end of the case, there was pulsation of the spinal cord. ESTIMATED BLOOD LOSS: 40 mL. DRAINS: One. SPECIMENS: Disk from all 3 levels were sent to pathology. COMPLICATIONS OF PROCEDURES: None. ANESTHESIOLOGIST: Nathan Melgar MD TYPE OF ANESTHESIA: General. INDICATIONS FOR PROCEDURE: This is a 55-year-old gentleman with cervical myelopathy, with cervical stenosis and disk extrusions. On 09/01/2016 he underwent posterior cervical cord decompression. Po stoperative imaging showed persistent anterior compression with swelling of the spinal cord, and the refore I recommended proceeding with the above-mentioned surgery. Preoperatively we discussed the r isks, benefits, and alternatives. He understood and wished to proceed. DESCRIPTION OF PROCEDURE IN DETAIL: The patient was identified in the preoperative holding area, gi amish Ancef antibiotics and gentamicin and taken to the operating room, where he was successfully plac ed under general anesthesia by Dr. Melgar. Neuromonitoring leads were placed, sequential compre ssive devices were applied. A Gutierres catheter was already in place. The patient was placed on the d ownward table in supine position. Arms were tucked to the side. Rolls were placed behind the neck and between the scapular blades and the neck was extended carefully. The neck was prepped and drape d in the usual sterile fashion. A left -sided approach to the neck was made. The skin was incised. The platysma was incised in line with the skin incision. I then identified the interval between t he sternocleidomastoid and strap muscles and identified the anterior spine. I placed bent spinals i nto the C4-C5 and C6-C7 levels and took a lateral film to confirm the correct levels. Once this was confirmed, I subperiosteally dissected the longus colli musculature. Self-retaining retractors wer e then placed. The anesthesiologist deflated and reinflated the endotracheal cuff. Microscope was brought in. I removed the anterior osteophytes at the C6-7 level. At C6-7 I performed partial lucretia ectomies, removing at least 50% of the vertebral bodies. I used a high-speed bur to do so. I thinn ed down the posterior osteophytes and decompressed the spinal cord at C6-7. Once this was done, I p laced various trials and chose the appropriate graft height. I then took the PEEK cage, within whic h I placed allograft, and I impacted this into the C6-7 level. I next turned my attention to the C5-6 level. Again, here I performed partial corpectomies of C5 an d C6, removing at least 50% of the vertebral bodies. I decompressed down to the posterior canal and removed the posterior longitudinal ligament. I used a probe and went distally behind the body of C 6 and removed a small to moderately sized extruded fragment. I then placed various trials and chose the appropriate graft height. I then took the PEEK cage, within which I placed allograft, and I im pacted the intervertebral biomechanical device into the C5-C6 level to complete the fusion at this l evel. I then turned my attention to the C4-C5 level. Again, partial corpectomies were performed, removing at least 50% of the vertebral bodies of C4 and C5. I went down to the posterior longitudinal ligam ent, which I removed. Small distal fragments were identified, but then I was able to probe and yoel ve a very large extruded fragment. Once this was done, the spinal cord opened up and there were pul sations visualized. At this point all nerve signals significantly improved. I placed various trial s and chose the appropriate graft height. Initially I placed a 5-mm graft and while impacting the p atient was jumping, and therefore I removed this and placed a 4-mm graft. On x-rays this appeared t o be too small and therefore I burred some more of the endplate and took the 5-mm PEEK graft, within which I placed allograft, and I impacted the intervertebral biomechanical device into the C4-C5 lev el to complete the anterior cervical fusion at C4-5, C5-6, and C6-7. I then placed the appropriate cervical plate anteriorly with 14-mm screws, spanning from C4 to C7. I then took final AP and later al images and I was happy with placement of the hardware and alignment of the spine. The wound was then irrigated. Hemostasis was achieved with Surgifoam, bipolar cautery and Gelfoam thrombin. The wound was irrigated once again. I placed a deep drain and closed the platysma with a running 2-0 Vi cryl stitch. I closed the subcutaneous tissue with a 4-0 Monocryl closure. Dermabond and sterile d ressings were then applied. The patient was then awakened from anesthesia and taken to recovery in stable condition. Lap, sponge, and instrument counts were correct x2. There were no apparent compl ications during the procedure. The patient will be admitted to the ICU for close observation with routine postoperative care, to in clude pain control, neurovascular checks, antibiotics, and physical therapy. Neuromonitoring was ut ilized during this procedure for 4 hours, to include SSEP, MEP, and EMG. This was performed by [facility]. Start time was 3:45 p.m., closure time was 7:45 p.m. Dictated By: AYDEN DACOSTA/TRUMAN Conf#: [id number] DID#: [id number]
[2016-09-08] MEDS: SOD CHLORIDE 0.9% 1,000 ML IV SCH ×2 (13:50→21:30)
--- NOTE | 2016-09-08 15:29 | RADRPT ---
PROCEDURE: Video-fluoroscopy swallowing study. CLINICAL INDICATION: Dysphagia. TECHNIQUE: Fluoroscopic guided video swallowing study was done in conjunction with the speech ther apist. The study was confined to the oral, pharyngeal, and cervical phases of the swallowing mechani sm. 2.1 minutes of fluoroscopy time was used. COMPARISON: No prior study is available for comparison. FINDINGS: There is penetration during swallowing. There is no evidence of aspiration during the exam. There h as been recent anterior fusion with plate and multiple screws and C4, C5, C6, C7. There is soft tis amira swelling anterior to the cervical spine. IMPRESSION: 1. Penetration without aspiration. 2. Recent cervical spine surgery. Soft tissue swelling anterior to the cervical spine. 3. Please refer to the speech therapist's recommendations for future feedings. RPTAT: QQ .Phani Adames MD, MD Date Time Electronically viewed and signed by .Phani Adames MD, on 09/08/2016 15:28 .R/
[2016-09-08 19:25] VITALS: BP 117/75; RESP 19
[2016-09-09] MEDS: HYDROmorphONE 1 MG/ML SYG IV PRN (02:20)
[2016-09-09] MEDS: SOD CHLORIDE 0.9% 1,000 ML IV SCH (02:21)
[2016-09-09 05:37] LABS: ADD SCAN DIFF NO
[2016-09-09 05:44] LABS: BASOPHIL # 0.1 10^3/ul (0.0-0.1); BASOPHILS % 0.3 % (0.0-2.0); EOSINOPHILS # 0.1 10^3/ul (0.0-0.5); EOSINOPHILS % 0.8 % (0.0-7.0); HEMATOCRIT 34.4 % (42.0-52.0); HEMOGLOBIN 12.3 g/dl (14.0-18.0); LYMPHOCYTES # 2.3 10^3/ul (0.8-2.9); LYMPHOCYTES % 12.3 % (15.0-51.0); MEAN CORPUSCULAR HGB CONC 35.8 g/dl (32.0-37.0); MEAN CORPUSCULAR VOLUME 86.6 fl (82.0-101.0); MEAN PLATELET VOLUME 10.9 fl (7.4-10.4); MONOCYTE # 1.3 10^3/ul (0.3-0.9); MONOCYTES % 7.2 % (0.0-11.0); NEUTROPHIL # 13.8 10^3/ul (1.6-7.5); NEUTROPHILS % 75.3 % (39.0-77.0); PLATELET COUNT 271 10^3/UL (140-415); RED BLOOD COUNT 3.97 10^6/ul (4.70-6.10); RED CELL DISTRIBUTION WIDTH 11.6 % (11.5-14.5); WHITE BLOOD COUNT 18.3 10^3/ul (4.8-10.8)
[2016-09-09] MEDS ORDERED: PANTOPRAZOLE 40 MG INJ IV SCH (06:00)
[2016-09-09 06:07] LABS: POTASSIUM 3.9 mmol/L (3.5-5.1)
[2016-09-09 06:10] LABS: CALCIUM 8.8 mg/dl (8.4-10.2); CREATININE 0.62 mg/dl (0.61-1.24); PHOSPHORUS 3.2 mg/dl (2.5-4.9)
[2016-09-09 08:16] VITALS: BP 117/73; RESP 20
--- NOTE | 2016-09-09 08:33 | CONS ---
Date/Time of Note Date/Time of Note DATE: 09/09/16 TIME: 08:31 Assessment/Plan Assessment/Plan Additional Assessment/Plan 1. Dysphagia has improved, ENT was called by dont see consult note ? 2. Continue steroids, per ortho 3. Hyponatremia is resolving 4. Can dc per ortho Consultation Date/Type/Reason Admit Date/Time Sep 01, 2016 at 17:14 Detailed Summary Respiratory: No cough, No shortness of breath Cardiovascular: No chest pain Gastrointestinal: other (swallowing has improved, constipated) Genitourinary: no complaints Musculoskeletal: neck pain (mild-mod) Exam/Review of Systems Vital Signs Vitals Vital Signs Date Time Temp Pulse Resp B/P Pulse Ox O2 Delivery O2 Flow Rate FiO2 09/09/16 08:16 98.0 67 20 117/73 99 09/07/16 16:00 Room Air 09/05/16 19:57 6.0 Intake and Output 09/08/16 09/08/16 09/09/16 15:00 23:00 07:00 Intake Total 925 ml 1600 ml Output Total 600 ml 700 ml Balance 325 ml 900 ml Exam Respiratory: clear to auscultation Gastrointestinal: soft Extremities: No edema (and no calf tend) Results Result Diagram: 09/09/16 0430 09/09/16 0430 Results 24 hrs Laboratory Tests Test 09/08/16 20:25 09/09/16 04:30 Urine Random Sodium 61 White Blood Count 18.3 H Red Blood Count 3.97 L Hemoglobin 12.3 L Hematocrit 34.4 L Mean Corpuscular Volume 86.6 Mean Corpuscular Hemoglobin 31.0 Mean Corpuscular Hemoglobin Concent 35.8 Red Cell Distribution Width 11.6 Platelet Count 271 Mean Platelet Volume 10.9 H Neutrophils % 75.3 Lymphocytes % 12.3 L Monocytes % 7.2 Eosinophils % 0.8 Basophils % 0.3 Nucleated Red Blood Cells % 0.0 Neutrophils # 13.8 H Lymphocytes # 2.3 Monocytes # 1.3 H Eosinophils # 0.1 Basophils # 0.1 Nucleated Red Blood Cells # 0.0 Sodium Level 133 L Potassium Level 3.9 Chloride Level 98 Carbon Dioxide Level 27 Anion Gap 12 Blood Urea Nitrogen 22 H Creatinine 0.62 Glucose Level 129 # Calcium Level 8.8 Phosphorus Level 3.2 Magnesium Level 2.0 Medications Medications Current Medications Oxycodone/ Acetaminophen (Endocet ()) 1 tab Q4H PRN PO PAIN LEVEL 1-5 Last administered on 09/07/16 21:26; Admin Dose 1 TAB; Start 09/05/16 at 20:00 Oxycodone/ Acetaminophen (Endocet (10/ 325)) 2 tab Q4H PRN PO PAIN LEVEL 6-10 Last administered on 09/07/16 16:26; Admin Dose 2 TAB; Start 09/05/16 at 20:00 Hydromorphone HCl (Dilaudid) 0.2 mg Q1H PRN IV BREAKTHROUGH PAIN Last administered on 09/09/16 02:20; Admin Dose 0.2 MG; Start 09/05/16 at 20:00 Ondansetron HCl (Zofran Inj) 4 mg Q6H PRN IV NAUSEA AND/OR VOMITING; Start at 20:00 Bisacodyl (Dulcolax Supp) 10 mg DAILY PRN NE CONSTIPATION; Start 09/05/16 at 20 :00 Docusate Sodium (Colace) 100 mg BID PO Last administered on 09/07/16 21:27; Admin Dose 100 MG; Start 09/05/16 at 21:00 Al Hydrox/Mg Hydrox/Simethicone (Mag-Al Plus) 15 ml Q6H PRN PO CONSTIPATION/ DYSPEPSIA; Start 09/05/16 at 20:00 Acetaminophen (Tylenol Tab) 650 mg Q4H PRN PO MOSCOSO OR TEMP GREATER THAN 101.3F; Start 09/05/16 at 20:00 Cyclobenzaprine HCl (Flexeril) 10 mg TID PRN PO MUSCLE SPASMS Last administered on 09/06/16 22:10; Admin Dose 10 MG; Start 09/05/16 at 20:00 Phenol (Cepastat Lozenge) 1 lozenge PRN PRN MT SORE THROAT; Start 09/05/16 at 20:00 Diphenhydramine HCl (Benadryl) 25 mg Q6H PRN IV ITCHING; Start 09/05/16 at 20: 00 Naloxone HCl (Narcan) 0.2 mg Q2M PRN IV RR 8 BREATHS/MIN OR LESS; Start at 20:00 Pantoprazole 40 mg 40 mg DAILY@06 IV Last administered on 09/09/16 05:45; Admin Dose 40 MG; Start 09/09/16 at 06:00 Sodium Chloride (NS) 1,000 ml @ 80 mls/hr [id number] IV Last administered on 02:21; Admin Dose 80 MLS/HR; Start 09/08/16 at 09:00 YUAN RAVI MD September 09, 2016 08:33
[2016-09-09] MEDS: DOCUSATE SODIUM 100 MG CAP PO SCH (09:00)
--- NOTE | 2016-09-09 18:28 | DS ---
DATE OF ADMISSION: 09/01/2016 DATE OF DISCHARGE: 09/09/2016 ADMITTING DIAGNOSIS: Cervical myelopathy with stenosis. DISCHARGE DIAGNOSIS: Cervical myelopathy with stenosis. PROCEDURE: The patient underwent anterior and posterior cervical decompression and fusion as outlin ed below. HOSPITAL COURSE: The patient was taken to the operating room on September 01 and underwent posterior ce rvical decompression. Postoperatively, he was admitted to the hospital. MRI study showed persisten t swelling of the spinal cord and therefore on September 05, He underwent anterior cervical diskectomy a nd instrumented fusion. He was readmitted back to the orthopedic means. He was having some difficul ty swallowing and a swallow evaluation was obtained showing some swelling in the area with swallowin g. Ultimately, he was doing well from a swallow standpoint. ENT consultation was obtained but geraldine villagomez saw the patient, but by September 09 he was doing well and tolerating an oral diet and oral pain medicati ons. Neurologically, he had significant improvement from prior to the surgery. MRI studies prior t o discharge showed significant decompression and room for the canal. By September 09 he was deemed stable for discharge with followup arranged with the undersigned. Dictated By: PERLA DACOSTA/TRUMAN Conf#: [id number] DID#: [id number]
== END 2016-09-09 15:30 | disposition home or self-care (01) | DRG 454 ==
LOC: E/R 09:29 → SDS 10:50 → REC 17:14 → SDS 17:14 → MS1 09-02 16:03
PROVIDERS: ADMIT Specialist; ATTEND Specialist
PROC: 0RG2071 Fusion of 2 or more Cervical Vertebral Joints with Autologous Tissue Substitute, Posterior Approach, Posterior Column, Open Approach (ICD-10-PCS; principal; 2016-09-01 12:00)
PROC: 0RG20A0 Fusion of 2 or more Cervical Vertebral Joints with Interbody Fusion Device, Anterior Approach, Anterior Column, Open Approach (ICD-10-PCS; 2016-09-05)
PROC: 0RB30ZZ Excision of Cervical Vertebral Disc, Open Approach (ICD-10-PCS; 2016-09-05)
PROC: 4A11X4G Monitoring of Peripheral Nervous Electrical Activity, Intraoperative, External Approach (ICD-10-PCS; 2016-09-05)
DX: M50.01 Cervical disc disorder with myelopathy, high cervical region (principal); E87.1 Hypo-osmolality and hyponatremia; R13.10 Dysphagia, unspecified; M48.02 Spinal stenosis, cervical region; R20.0 Anesthesia of skin; R26.9 Unspecified abnormalities of gait and mobility
CPT/HCPCS: 36415; 71010; 72020; 72052; 72156; 74230; 80048; 81001; 81003; 83735; 84100; 84300; 85025; 85610; 85730; 87086; 92526; 92611; 93005; 97116; 97162; 97530; J1940; C1713; C9113; J0330; J0360; J0690; J1100; J1170; J1580; J2175; J2250; J2405; J2710; J2765; J3010; J3475; J3480; J7030; J7040